=== PATIENT | female | born 1955 | race Caucasian/White ===

== ENCOUNTER 2017-09-16 19:10 | Emergency (ER) | payer OTHER, BC ==
[~2017-09-16] VITALS: Ht 157.5 cm; Wt 124.3 kg
[2017-09-16 19:46] LABS: BASOPHILS % (AUTO) 0 % (0-10); EOSINOPHILS # (AUTO) 0.1 10^3/uL (0.0-0.3); EOSINOPHILS % (AUTO) 2 % (0-10); HEMATOCRIT 35 % (35-52); HEMOGLOBIN 11.6 G/DL (11.5-16.0); LYMPHOCYTES # (AUTO) 1.4 X 10^3 (1.0-4.0); LYMPHOCYTES % (AUTO) 17 % (12-44); MEAN CORPUSCULAR HEMOGLOBIN 28 PG (25-34); MEAN CORPUSCULAR HGB CONC 33 G/DL (32-36); MEAN CORPUSCULAR VOLUME 85 FL (80-99); MEAN PLATELET VOLUME 10.1 FL (7.4-10.4); MONOCYTES # (AUTO) 0.7 X 10^3 (0.0-1.0); MONOCYTES % (AUTO) 8 % (0-12); NEUTROPHILS # (AUTO) 6.2 X 10^3 (1.8-7.8); NEUTROPHILS % (AUTO) 74 % (42-75); PLATELET COUNT 238 10^3/uL (130-400); RED BLOOD COUNT 4.09 10^6/uL (4.35-5.85); RED CELL DISTRIBUTION WIDTH 14.3 % (10.0-14.5); WHITE BLOOD COUNT 8.4 10^3/uL (4.3-11.0)
[2017-09-16 19:57] LABS: ALANINE AMINOTRANSFERASE 12 U/L (0-55); ALBUMIN 3.9 GM/DL (3.2-4.5); ALKALINE PHOSPHATASE 66 U/L (40-136); BILIRUBIN,TOTAL 0.4 MG/DL (0.1-1.0); BUN/CREATININE RATIO 8; CALCIUM 8.8 MG/DL (8.5-10.1); CARBON DIOXIDE 27 MMOL/L (21-32); CHLORIDE 105 MMOL/L (98-107); CREATININE SERUM 0.96 MG/DL (0.60-1.30); GFR ESTIMATED 59; GLUCOSE 114 MG/DL (70-105); SODIUM 140 MMOL/L (135-145); TOTAL PROTEIN 6.3 GM/DL (6.4-8.2)
[2017-09-16] MEDS ORDERED: HYDR12.5 (20:20)
[2017-09-16] MEDS ORDERED: METO-370 (20:20)
[2017-09-16] MEDS ORDERED: SIMV20TA3 (20:20)
[2017-09-16] MEDS ORDERED: LOSA25TA21 (20:20)
[2017-09-16] MEDS ORDERED: CATHETER FLUSH 10 ML SYR IV PRN (20:30)
[2017-09-16] MEDS ORDERED: NS 250 ML (IVPB) BAG IV ONE (20:30)
[2017-09-16] MEDS ORDERED: IOHEXOL 350 MG/ML 150 ML (OMNIPAQUE 350) VIAL IV ONE (20:30)
--- OUTSIDE RECORDS SUMMARY | 2017-09-16 20:43 | XMS REPORT ---
Author Author FRACISCO MCINTOSH [facility] Address [address] [place] [address] Care Team Providers Care Public Relations Director Name Role Phone FRACISCO MCINTOSH Unavailable PROBLEMS Type Condition ICD9-CM Code EOH13-JM Code Onset Dates Condition Status SNOMED Code Problem Chest pain R07.9 Active 00163285 Problem Left bundle branch block (LBBB) I44.7 Active 14380029 Problem Essential hypertension I10 Active 49420445 Problem Seasonal allergic rhinitis due to other allergic trigger J30.89 Active 550868259 Problem Morbid obesity, unspecified obesity type E66.01 Active 979067023 Problem Low vitamin D level E55.9 Active 011574860 ALLERGIES Unknown Allergies SOCIAL HISTORY No smoking Hx information available PLAN OF CARE VITAL SIGNS MEDICATIONS Unknown Medications RESULTS No Results PROCEDURES No Known procedures IMMUNIZATIONS No Known Immunizations
--- OUTSIDE RECORDS SUMMARY | 2017-09-16 20:43 | XMS REPORT ---
Author Author FRACISCO MCINTOSH [facility] Address [address] [place] [address] Care Team Providers Care Pasteurizing Supervisor Name Role Phone FRACISCO MCINTOSH Unavailable PROBLEMS Type Condition ICD9-CM Code ZIH63-KP Code Onset Dates Condition Status SNOMED Code Problem Chest pain R07.9 Active 27839521 Problem Left bundle branch block (LBBB) I44.7 Active 53964242 Problem Essential hypertension I10 Active 82745739 Problem Seasonal allergic rhinitis due to other allergic trigger J30.89 Active 007849911 Problem Morbid obesity, unspecified obesity type E66.01 Active 982254439 Problem Low vitamin D level E55.9 Active 366276602 ALLERGIES Unknown Allergies SOCIAL HISTORY No smoking Hx information available PLAN OF CARE VITAL SIGNS MEDICATIONS Medication Instructions Dosage Frequency Start Date End Date Duration Status Losartan Potassium 25 MG Orally Once a day 1 tablet 24h Apr, Active RESULTS No Results PROCEDURES No Known procedures IMMUNIZATIONS No Known Immunizations
--- OUTSIDE RECORDS SUMMARY | 2017-09-16 20:43 | XMS REPORT ---
Author Author [facility]IL[facility]ATORI Organization [facility] Address [address] [place] [address] Care Team Providers Care Railway Switch Operator Name Role Phone TORI VEGA Unavailable PROBLEMS Type Condition ICD9-CM Code BMD59-PN Code Onset Dates Condition Status SNOMED Code Problem Chest pain R07.9 Active 05835073 Problem Left bundle branch block (LBBB) I44.7 Active 26132023 Problem Essential hypertension I10 Active 18955789 Problem Seasonal allergic rhinitis due to other allergic trigger J30.89 Active 528629376 Problem Morbid obesity, unspecified obesity type E66.01 Active 725402269 Problem Low vitamin D level E55.9 Active 080887751 ALLERGIES No Known Allergies SOCIAL HISTORY Never Assessed PLAN OF CARE Activity Details Follow Up prn Reason:cough VITAL SIGNS Height 63 in 2016-06-12 Weight 299.5 lbs 2016-06-12 Temperature 98.1 degrees Fahrenheit 2016-06-12 Heart Rate 102 bpm 2016-06-12 Respiratory Rate 18 2016-06-12 BMI 53.05 kg/m2 2016-06-12 Blood pressure systolic 122 mmHg 2016-06-12 Blood pressure diastolic 72 mmHg 2016-06-12 MEDICATIONS Medication Instructions Dosage Frequency Start Date End Date Duration Status Losartan Potassium 25 MG Orally Once a day 1 tablet 24h Apr, Active Aspirin Adult Low Dose 81 MG Orally Once a day 1 tablet 24h Active RESULTS No Results PROCEDURES No Known procedures IMMUNIZATIONS No Known Immunizations MEDICAL (GENERAL) HISTORY Type Description Date Medical History hypertension Medical History obesity Medical History allergic rhinitis Medical History menopause Surgical History appendecomy 2011 Surgical History hysterectomy 1999 Surgical History broken nose repair Hospitalization History Surgery(s)/Childbirth(s) only Hospitalization History Hypertension 2015
--- OUTSIDE RECORDS SUMMARY | 2017-09-16 20:43 | XMS REPORT ---
Author Author JASBIR PRATT [facility] Address [address] [place] [address] Care Team Providers Care Blueprint Machine Operator Name Role Phone JASBIR PRATT Unavailable PROBLEMS Type Condition ICD9-CM Code OLP56-EU Code Onset Dates Condition Status SNOMED Code Problem Chest pain R07.9 Active 41626400 Problem Left bundle branch block (LBBB) I44.7 Active 44843692 Problem Essential hypertension I10 Active 35843684 Problem Seasonal allergic rhinitis due to other allergic trigger J30.89 Active 116410612 Problem Morbid obesity, unspecified obesity type E66.01 Active 908826149 Problem Low vitamin D level E55.9 Active 348452171 ALLERGIES No Known Allergies ENCOUNTERS Encounter Location Date Diagnosis [place] [address] [place] [id number] [place] [id number] Sep, [place] [id number] [place] [address] [id number] Jun, [address] [id number] [id number] Jun, Lymphadenopathy of head and neck R59.1 [facility] [id number] [place] [id number] Jun, BMI 45.0-49.9, adult Z68.42 ; Other specified bacterial agents as the cause of diseases classified elsewhere B96.89 ; Acute pharyngitis due to other specified organisms J02.8 ; Sore throat J02.9 and Cough R05 [facility] [address] [id number] [address] Jun, [facility] [address] [id number], [place] [address] Mar, Essential hypertension I10 [facility] [address] [id number], [place] [address] 09 Mar, 2017 Seasonal allergic rhinitis due to other allergic trigger J30.89 [facility] [address] [place] [id number] [place] [address] 04 Mar, 2017 [facility] [address] [place] [id number] [place] [phone] 05 Dec, 2016 Essential hypertension I10 [facility] [address] [place] [id number] [place] [address] Nov, Essential hypertension I10 [facility] [address] [address] Oct, [facility] [address] [place] [id number] [place] [address] Oct, Facial eczema L30.9 ; Essential hypertension I10 and Wellness examination Z00.00 [facility] [address] [place] [id number] [place] [address] Sep, Screening for diabetes mellitus Z13.1 [facility] [address] [place] [id number] [place] [address] Sep, Screening for diabetes mellitus Z13.1 [facility] [address] [place] [id number] [place] [address] August, Dysuria R30.0 [facility] [address] [place] [id number] [place] [address] 10 Jul, 2016 Chest pain, unspecified type R07.9 [facility] [address] [place] [id number] [place] [address] Jul, Chest pain R07.9 and Left bundle branch block (LBBB) I44.7 [facility] [address] [place] [id number] [place] [address] Jul, Urinary tract infection N39.0 [facility] [id number], [place] [address] Jul, [facility] [address] [id number], [place] [address] Jul, [facility] [address] [place] [id number], [place] [address] Jul, Dysuria R30.0 ; Low vitamin D level E55.9 ; Encounter for immunization Z23 ; Essential hypertension I10 ; Morbid obesity, unspecified obesity type E66.01 ; Edema, unspecified type R60.9 and Tinea corporis B35.4 [facility] [id number] [phone] Jul, [facility] [address] [place] [id number] [place] [id number] Jun, Cough R05 [facility] [address] [place] [id number] [place] [address] [id number] Apr, Blood pressure check Z01.30 [place] [address] [place] [id number] [place] [phone] Apr, [facility] [address] [place] [id number] Apr, [facility] [id number], [place] [address] Apr, Viral syndrome B34.9 [facility] [address] [place] [id number], [place] [address] Apr, [facility] [address] [place] [id number], [place] [address] Apr, Essential hypertension I10 [place] [address] [place] [id number] Apr, Blood pressure check Z01.30 [facility] [id number] Apr, Blood pressure check Z01.30 [id number] [id number] Apr, Blood pressure check Z01.30 [id number] [id number] Apr, [address] [place] [address] [id number] Apr, [place] [place] [id number] [place] [address] [id number] Apr, Blood pressure check Z01.30 [place] [id number] Apr, Blood pressure check Z01.30 [place] [id number] Apr, Blood pressure check Z01.30 [id number] [id number] Apr, Essential hypertension I10 and Heart palpitations R00.2 [address]00565100[place] [id number] Mar, Seasonal allergic rhinitis due to other allergic trigger J30.89 and Heart murmur R01.1 [facility] [address] [id number][place] [id number] Mar, [place] [address]00565100[place] [id number] Mar, Viral syndrome B34.9 [place] [address]00565100[place] [id number] Feb, [address]00565100[place] [id number] Feb, Dizziness R42 [address]00565100[place] [id number] Oct, [place] [id number] [place] [address] [id number] Oct, [place] [id number] [place] [address] [id number] Oct, URI, acute J06.9 [place] [id number] [place] [address] [id number] Sep, Right otitis media, unspecified chronicity, unspecified otitis media type H66.91 and Acute non-recurrent maxillary sinusitis J01.00 [place] [id number] [place] [address] [id number] Sep, [place] [id number] [place] [address] [id number] Sep, [place] [id number] [place] [address] [id number] Sep, Vitamin D deficiency E55.9 ; Vaginal dryness, menopausal N95.1 ; Frequent headaches R51 and Impacted cerumen of right ear H61.[address] [place] [address] [id number] Sep, Annual physical exam Z00.00 and Vitamin D deficiency, unspecified E55.9 [place] [id number] [place] [address] [id number] Mar, Urinary tract infection, site not specified N39.0 and Dysuria R30.0 [place] [id number] [place] [address] [id number] Dec, Viral syndrome 079.99 [place] [id number] [place] [address] [id number] 08 Dec, 2014 Allergic rhinitis 477.[address] [id number] Oct, Herpes zoster 053.9 [facility] [address] [place] [address] [id number] [phone] August, Screening for lipoid disorders V77.91 and Screening for diabetes mellitus V77.1 [facility] [address] [id number], [place] [address] 14 Jul, 2014 [facility] [address]00565100[place], [place] [address] Jul, [facility] [address] [place] [address] [id number] [phone] Jun, [place] [address]65100[place], [place] [address] Jun, [facility] [address] [place], [place] [address]B[place] [id number] Mar, [place] [address]65100[place], [place] [address] Mar, [facility] [address] [place], [place] [id number] [id number] Mar, [place] [address] [id number], [place] [address] Mar, 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 PLAN OF CARE Activity Details Follow Up 3 Months Reason:htn VITAL SIGNS Height 63 in 2017-03-24 Weight 276.9 lbs 2017-03-24 Temperature 97.5 degrees Fahrenheit 2017-03-24 Heart Rate 88 bpm 2017-03-24 Respiratory Rate 16 2017-03-24 BMI 49.05 kg/m2 2017-03-24 Blood pressure systolic 120 mmHg 2017-03-24 Blood pressure diastolic 76 mmHg 2017-03-24 MEDICATIONS Medication Instructions Dosage Frequency Start Date End Date Duration Status Nystatin 745393 UNIT/GM Externally Twice a day 1 application to affected area 12Jul, Not-Taking Aspirin Adult Low Dose 81 MG Orally Once a day 1 tablet 24h Not- Taking Zyrtec Allergy 10 MG Orally Once a day 1 tablet 24h Not-Taking Nitroglycerin 0.4 MG Sublingual for severe chest pain, may repeat every 5 minutes, max of 3 doses in 15 min take 1 tablet Jul, Not- Taking Metoprolol Succinate ER 50 mg Orally Once a day 1 tablet 24h Active Hydrochlorothiazide 12.5 MG Orally Once a day 1 tablet in the morning 24h Jul, Active Flonase 50 MCG/ACT Nasally Twice a day 1 spray in each nostril 12h Mar, 30 day(s) Active Losartan Potassium 25 MG Orally Once a day 1 tablet 24h 30 Active RESULTS No Results PROCEDURES No Known procedures INSTRUCTIONS MEDICATIONS ADMINISTERED No Known Medications MEDICAL (GENERAL) HISTORY Type Description Date Medical History hypertension Medical History obesity Medical History allergic rhinitis Medical History menopause Surgical History appendecomy 2011 Surgical History hysterectomy 1999 Surgical History broken nose repair Hospitalization History Surgery(s)/Childbirth(s) only Hospitalization History Hypertension 2015
--- OUTSIDE RECORDS SUMMARY | 2017-09-16 20:43 | XMS REPORT ---
Author Author AIMEE Jeong [facility] Address [address] [address] Care Team Providers Care Net Lead Architect Name Role Phone AIMEE Jeong Unavailable PROBLEMS Type Condition ICD9-CM Code GFK99-ZC Code Onset Dates Condition Status SNOMED Code Problem Chest pain R07.9 Active 01158431 Problem Left bundle branch block (LBBB) I44.7 Active 22076099 Problem Essential hypertension I10 Active 14655190 Problem Seasonal allergic rhinitis due to other allergic trigger J30.89 Active 316921878 Problem Morbid obesity, unspecified obesity type E66.01 Active 260030387 Problem Low vitamin D level E55.9 Active 470916125 ALLERGIES Unknown Allergies SOCIAL HISTORY No smoking Hx information available PLAN OF CARE VITAL SIGNS Height 63 in 2016-04-10 Heart Rate 82 bpm 2016-04-10 Blood pressure systolic 130 mmHg 2016-04-10 Blood pressure diastolic 80 mmHg 2016-04-10 MEDICATIONS Unknown Medications RESULTS No Results PROCEDURES No Known procedures IMMUNIZATIONS No Known Immunizations
--- OUTSIDE RECORDS SUMMARY | 2017-09-16 20:43 | XMS REPORT ---
Author Author FRACISCO Minor Organization [facility] Address [address] [place] [address] Care Team Providers Care Security Dispatcher Name Role Phone FRACISCO Minor Unavailable PROBLEMS Type Condition ICD9-CM Code XDD73-AT Code Onset Dates Condition Status SNOMED Code Problem Chest pain R07.9 Active 67054404 Problem Left bundle branch block (LBBB) I44.7 Active 54142265 Problem Essential hypertension I10 Active 15160313 Problem Seasonal allergic rhinitis due to other allergic trigger J30.89 Active 163359307 Problem Morbid obesity, unspecified obesity type E66.01 Active 836938803 Problem Low vitamin D level E55.9 Active 849586073 ALLERGIES No Known Allergies ENCOUNTERS Encounter Location Date Diagnosis [facility] [address] [place] [id number] [id number] Jun, [facility] [address] [place], [place] [id number] [place] [id number] Jun, Lymphadenopathy of head and neck R59.1 [facility] [place] [address] [id number] [place] [id number] Jun, BMI 45.0-49.9, adult Z68.42 ; Other specified bacterial agents as the cause of diseases classified elsewhere B96.89 ; Acute pharyngitis due to other specified organisms J02.8 ; Sore throat J02.9 and Cough R05 [facility] [id number] [place] [address] 05 Jun, 2017 [facility] [address] [id number] [address] Mar, Essential hypertension I10 [facility] [address] [place] [id number] [place] [address] 09 Mar, 2017 Seasonal allergic rhinitis due to other allergic trigger J30.89 [facility] [address] [place] [id number] [place] [address] 04 Mar, 2017 [facility] [id number] [place] [address] 05 Dec, 2016 Essential hypertension I10 [facility] [address] [address] Nov, Essential hypertension I10 [facility] [address] [address] Oct, [facility] [address] [address] Oct, Facial eczema L30.9 ; Essential hypertension I10 and Wellness examination Z00.00 [facility] [address] [place] [id number] [place] [address] Sep, Screening for diabetes mellitus Z13.1 [facility] [address] [place] [id number] [place] [address] Sep, Screening for diabetes mellitus Z13.1 [facility] [address] [place] [id number] [place] [address] August, Dysuria R30.0 [facility] [address] [place] [id number] [place] [address] Jul, Chest pain, unspecified type R07.9 [facility] [address] [place] [id number] [place] [address] 07 Jul, 2016 Chest pain R07.9 and Left bundle branch block (LBBB) I44.7 [facility] [address] [place] [id number] [place] [address] 05 Jul, 2016 Urinary tract infection N39.0 [facility] [address] [id number] [place] [address] 05 Jul, 2016 [facility] [address] [place] [id number] [place] [address] Jul, [facility] [address] [place] [id number] [place] [address] Jul, Dysuria R30.0 ; Low vitamin D level E55.9 ; Encounter for immunization Z23 ; Essential hypertension I10 ; Morbid obesity, unspecified obesity type E66.01 ; Edema, unspecified type R60.9 and Tinea corporis B35.4 [facility] [id number] RUN[place] [id number] Jul, [facility] [address] [place] [id number] [place] [address] [id number] Jun, Cough R05 [place] [address] [place] [id number] [place] [address] [id number] Apr, Blood pressure check Z01.30 [place] [address] [place], [place] [address] [id number] Apr, [facility] [address] [place] [id number] [place] [address] [id number] Apr, [facility] [address] [place] [id number] [place] [address] Apr, Viral syndrome B34.9 [facility] [address] [place] [id number] [place] [address] Apr, [facility] [id number] [place] [address] Apr, Essential hypertension I10 [facility] [address] [place] [address] [id number] Apr, Blood pressure check Z01.30 [place] [address] [place] [address] [place] [address] [id number] Apr, Blood pressure check Z01.30 [address]00565100[place] [id number] Apr, Blood pressure check Z01.30 [address]00565100[place] [address] Apr, [address] [place] [address] [id number] Apr, [place] [id number] [place] [address] [id number] Apr, Blood pressure check Z01.30 [place] [address] [place] [address] [id number] Apr, Blood pressure check Z01.30 [place] [id number] Apr, Blood pressure check Z01.30 [address]65100[place] [address] Apr, Essential hypertension I10 and Heart palpitations R00.2 [place] [address]00565100[place] [id number] Mar, Seasonal allergic rhinitis due to other allergic trigger J30.89 and Heart murmur R01.1 [facility] [address] [id number] RUN[place] [id number] Mar, [address]00565100[place], [place] [id number] Mar, Viral syndrome B34.9 [place] [address] [id number] [id number] Feb, [address]65100[place], [place] [id number] Feb, Dizziness R42 [id number] [id number] Oct, [address]00565100[place] [id number] Oct, [place] [address] [place] [address] [id number] Oct, URI, acute J06.9 [place] [address] [place] [address] [id number] Sep, Right otitis media, unspecified chronicity, unspecified otitis media type H66.91 and Acute non-recurrent maxillary sinusitis J01.00 [place] [address] [place] [address] [id number] Sep, [place] [address] [place] [address] [id number] Sep, [place] [address] [place] [address] [id number] Sep, Vitamin D deficiency E55.9 ; Vaginal dryness, menopausal N95.1 ; Frequent headaches R51 and Impacted cerumen of right ear H61.21 [place] [address] [place] [address] [id number] Sep, Annual physical exam Z00.00 and Vitamin D deficiency, unspecified E55.9 [id number] [id number] Mar, Urinary tract infection, site not specified N39.0 and Dysuria R30.0 [place] [id number] [place] [address] [id number] Dec, Viral syndrome 079.99 [place] [address] [place] [address] [id number] Dec, Allergic rhinitis 477.9 [place] [address] [place] [address] [id number] Oct, Herpes zoster 053.9 [facility] [address] [place] [address] [id number] [id number] August, Screening for lipoid disorders V77.91 and Screening for diabetes mellitus V77.1 [facility] [address] [id number] [address] 14 Jul, 2014 [facility] [address] [id number] [address] Jul, [facility] [address] [place] [id number] [id number] Jun, [facility] [address]00565100[place] [address] Jun, [facility] [address] [place] [address] [id number] Mar, [facility] [address] [id number] [address] Mar, [facility] [address] [place] [address] [id number], [place] [id number] Mar, [facility] [address]00565100[place] [address] Mar, [facility] [address] [place] [address] [id number] [id number] Jan, [facility] [address] [id number] [address] Jan, IMMUNIZATIONS No Known Immunizations SOCIAL HISTORY Never Assessed REASON FOR VISIT 3 mo F/U- Pt wanting yearly exam- Caren Redmond RN PLAN OF CARE Activity Details Follow Up 4 Months Reason: VITAL SIGNS Height 63 in 2016-10-21 Weight 279.2 lbs 2016-10-21 Temperature 97.4 degrees Fahrenheit 2016-10-21 Heart Rate 80 bpm 2016-10-21 Respiratory Rate 18 2016-10-21 BMI 49.45 kg/m2 2016-10-21 Blood pressure systolic 128 mmHg 2016-10-21 Blood pressure diastolic 80 mmHg 2016-10-21 MEDICATIONS Medication Instructions Dosage Frequency Start Date End Date Duration Status Nitroglycerin 0.4 MG Sublingual for severe chest pain, may repeat every 5 minutes, max of 3 doses in 15 min take 1 tablet Jul, Active Losartan Potassium 25 MG Orally Once a day 1 tablet 24h Apr, Active Hydrochlorothiazide 12.5 MG Orally Once a day 1 tablet in the morning 24h Jul, Active Aspirin Adult Low Dose 81 MG Orally Once a day 1 tablet 24h Active Metoprolol Succinate ER 50 MG Orally Once a day 1 tablet 24h Active RESULTS No Results PROCEDURES Procedure Date Ordered Result Body Site ROUTINE VENIPUNCTURE 2016-10-21 N/A COMPLETE CBC W/AUTO DIFF WBC October 21, 2016 LIPID PANEL October 21, 2016 COMPREHEN METABOLIC PANEL October 21, 2016 INSTRUCTIONS MEDICATIONS ADMINISTERED No Known Medications MEDICAL (GENERAL) HISTORY Type Description Date Medical History hypertension Medical History obesity Medical History allergic rhinitis Medical History menopause Surgical History appendecomy 2011 Surgical History hysterectomy 1999 Surgical History broken nose repair Hospitalization History Surgery(s)/Childbirth(s) only Hospitalization History Hypertension 2015
--- OUTSIDE RECORDS SUMMARY | 2017-09-16 20:43 | XMS REPORT ---
Author Author AIMEE Jeong [facility] Address [address] [address] Care Team Providers Care Campground Manager Name Role Phone AIMEE Jeong Unavailable PROBLEMS Type Condition ICD9-CM Code DYM87-SI Code Onset Dates Condition Status SNOMED Code Problem Chest pain R07.9 Active 29903286 Problem Left bundle branch block (LBBB) I44.7 Active 90742899 Problem Essential hypertension I10 Active 74581031 Problem Seasonal allergic rhinitis due to other allergic trigger J30.89 Active 705462840 Problem Morbid obesity, unspecified obesity type E66.01 Active 339318223 Problem Low vitamin D level E55.9 Active 862532466 ALLERGIES Unknown Allergies SOCIAL HISTORY No smoking Hx information available PLAN OF CARE VITAL SIGNS Height 63 in 2016-04-14 Heart Rate 82 bpm 2016-04-14 Blood pressure systolic 118 mmHg 2016-04-14 Blood pressure diastolic 68 mmHg 2016-04-14 MEDICATIONS Unknown Medications RESULTS No Results PROCEDURES No Known procedures IMMUNIZATIONS No Known Immunizations
--- OUTSIDE RECORDS SUMMARY | 2017-09-16 20:43 | XMS REPORT ---
Author Author FRACISCO MCINTOSH [facility] Address [address] [place] [address] Care Team Providers Care Utility Specialist Name Role Phone FRACISCO MCINTOSH Unavailable PROBLEMS Type Condition ICD9-CM Code MWX49-IY Code Onset Dates Condition Status SNOMED Code Problem Chest pain R07.9 Active 05754379 Problem Left bundle branch block (LBBB) I44.7 Active 19948868 Problem Essential hypertension I10 Active 28985885 Problem Seasonal allergic rhinitis due to other allergic trigger J30.89 Active 228534927 Problem Morbid obesity, unspecified obesity type E66.01 Active 146494085 Problem Low vitamin D level E55.9 Active 924811092 ALLERGIES Unknown Allergies SOCIAL HISTORY No smoking Hx information available PLAN OF CARE VITAL SIGNS MEDICATIONS Medication Instructions Dosage Frequency Start Date End Date Duration Status Tessalon Perles 100 MG Orally Three times a day 1 capsule as needed 8h Mar, Active RESULTS No Results PROCEDURES No Known procedures IMMUNIZATIONS No Known Immunizations
--- OUTSIDE RECORDS SUMMARY | 2017-09-16 20:44 | XMS REPORT ---
Author Author FRACISCO Minor [facility] Address [address] [place] [address] Care Team Providers Care Parts Processor Name Role Phone FRACISCO Minor Unavailable PROBLEMS Type Condition ICD9-CM Code FVG15-MK Code Onset Dates Condition Status SNOMED Code Problem Chest pain R07.9 Active 59362764 Problem Left bundle branch block (LBBB) I44.7 Active 26744225 Problem Essential hypertension I10 Active 90834164 Problem Seasonal allergic rhinitis due to other allergic trigger J30.89 Active 668620283 Problem Morbid obesity, unspecified obesity type E66.01 Active 444096918 Problem Low vitamin D level E55.9 Active 034497093 ALLERGIES No Information SOCIAL HISTORY Never Assessed PLAN OF CARE VITAL SIGNS MEDICATIONS Unknown Medications RESULTS Name Result Date Reference Range A1C (IN HOUSE) 2016-09-04 A1C IN HOUSE 5.6 4.3 - 5.6 % Previous A1c n/a Lot [id number] Exp date 05/2018 PROCEDURES Procedure Date Ordered Result Body Site GLYCATED HEMOGLOBIN TEST September 04, 2016 IMMUNIZATIONS No Known Immunizations MEDICAL (GENERAL) HISTORY Type Description Date Medical History hypertension Medical History obesity Medical History allergic rhinitis Medical History menopause Surgical History appendecomy 2011 Surgical History hysterectomy 1999 Surgical History broken nose repair Hospitalization History Surgery(s)/Childbirth(s) only Hospitalization History Hypertension 2015
--- OUTSIDE RECORDS SUMMARY | 2017-09-16 20:44 | XMS REPORT ---
Author Author FRACISCO MCINTOSH [facility] Address [address] [place] [address] Care Team Providers Care Global Marketing Manager Name Role Phone FRACISCO MCINTOSH Unavailable PROBLEMS Unknown Problems ALLERGIES Unknown Allergies SOCIAL HISTORY No smoking Hx information available PLAN OF CARE VITAL SIGNS MEDICATIONS Unknown Medications RESULTS No Results PROCEDURES No Known procedures IMMUNIZATIONS No Known Immunizations
--- OUTSIDE RECORDS SUMMARY | 2017-09-16 20:44 | XMS REPORT ---
Author Author JASBIR PRATT [facility] Address [address] [place] [address] Care Team Providers Care Song Writer Name Role Phone JASBIR PRATT Unavailable PROBLEMS Type Condition ICD9-CM Code ALU53-LZ Code Onset Dates Condition Status SNOMED Code Problem Chest pain R07.9 Active 20392207 Problem Left bundle branch block (LBBB) I44.7 Active 16595040 Problem Essential hypertension I10 Active 97178590 Problem Seasonal allergic rhinitis due to other allergic trigger J30.89 Active 103400047 Problem Morbid obesity, unspecified obesity type E66.01 Active 118312597 Problem Low vitamin D level E55.9 Active 000192114 ALLERGIES No Information ENCOUNTERS Encounter Location Date Diagnosis [facility] [address]65100[place], [place] [id number] Jun, [facility] [address] [place] [id number] [place] [id number] Jun, Lymphadenopathy of head and neck R59.1 [facility] [address] [id number], [place] [id number] Jun, BMI 45.0-49.9, adult Z68.42 ; Other specified bacterial agents as the cause of diseases classified elsewhere B96.89 ; Acute pharyngitis due to other specified organisms J02.8 ; Sore throat J02.9 and Cough R05 [facility] [address] [id number], [place] [address] Jun, [facility] [address] [id number], [place] [address] Mar, Essential hypertension I10 [facility] [address] [id number], [place] [address] Mar, Seasonal allergic rhinitis due to other allergic trigger J30.89 [facility] [address] [place] [id number] [place] [address] 04 Mar, 2017 [facility] [address] [place] [id number] [place] [address] 05 Dec, 2016 Essential hypertension I10 [facility] [address] [address] 02 Nov, 2016 Essential hypertension I10 [facility] [address] [address] Oct, [facility] [address] [address] Oct, Facial eczema L30.9 ; Essential hypertension I10 and Wellness examination Z00.00 [facility] [address] [address] Sep, Screening for diabetes mellitus Z13.1 [facility] [address] [place] [id number] [place] [address] Sep, Screening for diabetes mellitus Z13.1 [facility] [address] [place] [id number] [place] [address] August, Dysuria R30.0 [facility] [address] [place] [id number] [place] [address] 10 Jul, 2016 Chest pain, unspecified type R07.9 [facility] [address] [place] [id number] [place] [address] 07 Jul, 2016 Chest pain R07.9 and Left bundle branch block (LBBB) I44.7 [facility] [address] [place] [id number] [place] [address] 05 Jul, 2016 Urinary tract infection N39.0 [facility] [address] [place] [id number] [place] [address] Jul, [facility] [id number], [place] [address] Jul, [facility] [address] [place] [id number], [place] [address] Jul, Dysuria R30.0 ; Low vitamin D level E55.9 ; Encounter for immunization Z23 ; Essential hypertension I10 ; Morbid obesity, unspecified obesity type E66.01 ; Edema, unspecified type R60.9 and Tinea corporis B35.4 [facility] [id number], [place] [id number] Jul, [place] [address] [place] [id number] [place] [address] [id number] Jun, Cough R05 [facility] [address] [id number] [place] [address] [id number] Apr, Blood pressure check Z01.30 [facility] [address] [id number] [id number] Apr, [facility] [address] [place] [id number] [place] [address] [id number] Apr, [facility] [id number], [place] [address] Apr, Viral syndrome B34.9 [facility] [address] [id number], [place] [address] Apr, [facility] [address] [place] [id number], [place] [address] Apr, Essential hypertension I10 [place] [address] [place] [id number] [place] [address] [id number] Apr, Blood pressure check Z01.30 [facility] [address] [place] 250[place], [place] [id number] Apr, Blood pressure check Z01.30 [place] [address]00565100[place], [place] [id number] Apr, Blood pressure check Z01.30 [place] 5942165100[place], [place] [id number] Apr, [facility] [address]00565100[place], [place] [id number] Apr, [place] [id number] [place] [address] [id number] Apr, Blood pressure check Z01.30 [place] [id number] [place] [address] [id number] Apr, Blood pressure check Z01.30 [place] 5942165100[place], [place] 25[address]38[address] Apr, Blood pressure check Z01.30 [place] [address] [place] [address] [id number] Apr, Essential hypertension I10 and Heart palpitations R00.2 [facility] [id number] [place] [address] [id number] Mar, Seasonal allergic rhinitis due to other allergic trigger J30.89 and Heart murmur R01.1 [facility] [place] [address] [id number], [place] [id number] Mar, [address]005[address]100[place], [place] [id number] Mar, Viral syndrome B34.9 [facility] [address]00565100[place], [place] [id number] Feb, [address]00565100[place], [place] [id number] Feb, Dizziness R42 [facility] [id number], [place] [id number] Oct, [place] [id number], [place] [id number] Oct, [place] [id number], [place] [id number] Oct, URI, acute J06.9 [address]00565100[place], [place] 8[address]98[address] Sep, Right otitis media, unspecified chronicity, unspecified otitis media type H66.91 and Acute non-recurrent maxillary sinusitis J01.00 [place] 9487165[place] 149692580 Sep, [place] [id number] [place] [address] [id number] Sep, [place] 9487165[place], [place] [id number] Sep, Vitamin D deficiency E55.9 ; Vaginal dryness, menopausal N95.1 ; Frequent headaches R51 and Impacted cerumen of right ear H61.21 [address]00565100[place], [place] [id number] Sep, Annual physical exam Z00.00 and Vitamin D deficiency, unspecified E55.9 [place] [id number] [place] [address] [id number] Mar, Urinary tract infection, site not specified N39.0 and Dysuria R30.0 [place] [id number] [place] [address] [id number] Dec, Viral syndrome 079.[address] [id number] 08 Dec, 2014 Allergic rhinitis 477.9 [place] [id number] [place] [address] [id number] Oct, Herpes zoster 053.9 [address] [place] [id number] August, Screening for lipoid disorders V77.91 and Screening for diabetes mellitus V77.1 [facility] [address]00565100[place], [place] [address] Jul, [facility] [address] [id number], [place] [address] Jul, [place] [id number], [place] [id number] Jun, [facility] [address]00565100[place], [place] [address] Jun, [address]00565100[place], [place] [id number] Mar, [facility] [address]00565100[place], [place] [address] Mar, [address]005[address]100[place], [place] [id number] Mar, [facility] [address] [id number], [place] [address] Mar, [address]005[address]100[place], [place] [id number] Jan, [facility] [address] [id number], [place] [address] Jan, IMMUNIZATIONS No Known Immunizations SOCIAL HISTORY Never Assessed REASON FOR VISIT Lab orders PLAN OF CARE VITAL SIGNS MEDICATIONS Unknown Medications RESULTS No Results PROCEDURES No Known procedures INSTRUCTIONS MEDICATIONS ADMINISTERED No Known Medications MEDICAL (GENERAL) HISTORY Type Description Date Medical History hypertension Medical History obesity Medical History allergic rhinitis Medical History menopause Surgical History appendecomy 2011 Surgical History hysterectomy 2000 Surgical History broken nose repair Hospitalization History Surgery(s)/Childbirth(s) only Hospitalization History Hypertension 2015
--- OUTSIDE RECORDS SUMMARY | 2017-09-16 20:44 | XMS REPORT ---
Author Author FRACISCO MCINTOSH [facility] Address [address] [place] [address] Care Team Providers Care Mobile Phone Salesperson Name Role Phone FRACISCO MCINTOSH Unavailable PROBLEMS Type Condition ICD9-CM Code [id number] Code Onset Dates Condition Status SNOMED Code Problem Chest pain R07.9 Active 29663864 Problem Left bundle branch block (LBBB) I44.7 Active 20827720 Problem Essential hypertension I10 Active 05052498 Problem Seasonal allergic rhinitis due to other allergic trigger J30.89 Active 854916641 Problem Morbid obesity, unspecified obesity type E66.01 Active 931383369 Problem Low vitamin D level E55.9 Active 828120011 ALLERGIES Unknown Allergies SOCIAL HISTORY No smoking Hx information available PLAN OF CARE VITAL SIGNS Height 63 in 2016-04-11 Heart Rate 98 bpm 2016-04-11 Respiratory Rate 18 2016-04-11 Blood pressure systolic 140 mmHg 2016-04-11 Blood pressure diastolic 78 mmHg 2016-04-11 MEDICATIONS Unknown Medications RESULTS No Results PROCEDURES No Known procedures IMMUNIZATIONS No Known Immunizations
--- OUTSIDE RECORDS SUMMARY | 2017-09-16 20:44 | XMS REPORT ---
Author Author MAGY LEA Organization [employer] Address Unknown Phone Unavailable Care Team Providers Care Radiology Ct Technologist Name Role Phone ZULYSAYDA MAGY CP Unavailable Allergies, Adverse Reactions, Alerts Substance Reaction Event Type N.K.D.A. Info Not Available Non Drug Allergy Problems Problem Type Condition Code Onset Dates Condition Status Assessment Vaginal dryness, menopausal N95.1 Active Assessment Frequent headaches R51 Active Assessment Vitamin D deficiency E55.9 Active Assessment Impacted cerumen of right ear H61.21 Active Medications Medication Code System Code Instructions Start Date End Date Status Dosage Multi Complete [facility][NOTE 3] [address]153 Orally not defined Grape Seed Complex [facility][NOTE 3] 477[address]18 50 mg Orally Once a day 2 tablets Ergocalciferol [facility][NOTE 3] [address]-52 80000 UNIT Orally Once a week September 26, 2015 October 08, 2015 1 capsule Ibuprofen [facility][NOTE 3] [address]-51 600 MG Orally Three times a day September 26, 2015 October 26, 2015 1 tablet Estradiol [facility][NOTE 3] [address]-79 0.1 MG/GM Vaginal as directed September 26, 2015 instill 0.2mg daily x 2 weeks and then instill 0.2 mg twice weekly Dietary Management Product NDC 0 2 Orally Once a day not defined Eye Health Formula NDC 0 1 by oral route Once a day not defined Raji/Mag [facility][NOTE 3] 64457-[address]60 200-100 MG Orally Once a day 2 tablets Probiotic [facility][NOTE 3] [address]11-14088 1 Orally Once a day not defined Loratadine Allergy Relief [facility][NOTE 3] [address]46-34923 10 MG Orally Once a day 1 tablet on the tongue and allow to dissolve Procedures Procedure Coding System Code Date Office Visit, Est Pt., Level 3 CPT-4 88302 September 26, 2015 EAR IRRIGATION CPT-4 68747 September 26, 2015 Vital Signs Date/Time: September 26, 2015 Cardiac Monitoring Heart Rate 80 bpm Weight 298.3 lbs Height 63 in BMI 52.84 Index Blood Pressure Diastolic 74 mmHg Blood Pressure Systolic 120 mmHg Results No Known Results Summary Purpose [employer] Submission
--- OUTSIDE RECORDS SUMMARY | 2017-09-16 20:44 | XMS REPORT ---
Author Author FRACISCO MCINTOSH [facility] Address [address] [place] [address] Care Team Providers Care Environmental Health Technician Name Role Phone FRACISCO MCINTOSH Unavailable PROBLEMS Type Condition ICD9-CM Code RYY18-ZA Code Onset Dates Condition Status SNOMED Code Problem Chest pain R07.9 Active 80659077 Problem Left bundle branch block (LBBB) I44.7 Active 32585328 Problem Essential hypertension I10 Active 97066637 Problem Seasonal allergic rhinitis due to other allergic trigger J30.89 Active 338177570 Problem Morbid obesity, unspecified obesity type E66.01 Active 352870992 Problem Low vitamin D level E55.9 Active 640641189 ALLERGIES Unknown Allergies SOCIAL HISTORY No smoking Hx information available PLAN OF CARE VITAL SIGNS Height 63 in 2016-04-15 Heart Rate 88 bpm 2016-04-15 Blood pressure systolic 118 mmHg 2016-04-15 Blood pressure diastolic 62 mmHg 2016-04-15 MEDICATIONS Unknown Medications RESULTS No Results PROCEDURES No Known procedures IMMUNIZATIONS No Known Immunizations
--- OUTSIDE RECORDS SUMMARY | 2017-09-16 20:44 | XMS REPORT ---
Author Author AIMEE FISH Organization [employer] Address Unknown Phone Unavailable Care Team Providers Care Rn Internship Name Role Phone AIMEE FISH CP Unavailable Allergies, Adverse Reactions, Alerts Substance Reaction Event Type N.K.D.A. Info Not Available Non Drug Allergy Problems Problem Type Condition Code Onset Dates Condition Status Assessment Dizziness R42 Active Medications Medication Code System Code Instructions Start Date End Date Status Dosage Meclizine HCl [facility] [place] [address]-82 25 MG Orally Once a day Feb 04, 2016 1 tablet as needed Procedures Procedure Coding System Code Date Office Visit, Est Pt., Level 3 CPT-4 76974 Feb 04, 2016 Vital Signs Date/Time: Feb 04, 2016 Cardiac Monitoring Heart Rate 78 bpm Weight 303 lbs Height 63 in BMI 53.67 Index Blood Pressure Diastolic 72 mmHg Blood Pressure Systolic 112 mmHg Results No Known Results Summary Purpose [employer] Submission
--- OUTSIDE RECORDS SUMMARY | 2017-09-16 20:44 | XMS REPORT ---
Author Author TESS Elena Organization [facility] Address [address] [place] [address] Care Team Providers Care Stonemason Helper Name Role Phone TESS Elena Unavailable PROBLEMS Type Condition ICD9-CM Code HUE09-IZ Code Onset Dates Condition Status SNOMED Code Problem Left bundle branch block (LBBB) I44.7 Active 11549253 Problem Chest pain R07.9 Active 41123767 Problem Essential hypertension I10 Active 96210038 Problem Seasonal allergic rhinitis due to other allergic trigger J30.89 Active 712594414 Problem Low vitamin D level E55.9 Active 250190025 Problem Morbid obesity, unspecified obesity type E66.01 Active 037954329 ALLERGIES Substance Reaction Event Type Date Status N.K.D.A. Unknown Non Drug Allergy Mar, Unknown SOCIAL HISTORY No smoking Hx information available PLAN OF CARE Activity Details Follow Up Advised to make annual physical appointment Reason: VITAL SIGNS Height 63 in 2016-03-27 Weight 303.4 lbs 2016-03-27 Temperature 98.4 degrees Fahrenheit 2016-03-27 Heart Rate 96 bpm 2016-03-27 Respiratory Rate 22 2016-03-27 BMI 53.74 kg/m2 2016-03-27 Blood pressure systolic 138 mmHg 2016-03-27 Blood pressure diastolic 84 mmHg 2016-03-27 MEDICATIONS Medication Instructions Dosage Frequency Start Date End Date Duration Status Ipratropium [place] 0.03 % Nasally Twice a day 2 applications in each nostril as needed 12h Mar, Active Grape Seed Complex 50 mg Orally Once a day 2 tablets 24h Active Raji/Mag 200-100 MG Orally Once a day 2 tablets 24h Active Fluticasone Propionate 50 MCG/ACT Nasally Once a day 1 spray in each nostril 24h Mar, 30 day(s) Active Multi Complete Active Loratadine Allergy Relief 10 MG Orally Once a day 1 tablet on the tongue and allow to dissolve 24h Active Eye Health Formula 1 by oral route Once a day 24h Active Probiotic 1 Orally Once a day 24h Active Tessalon Perles 100 MG Orally Three times a day 1 capsule as needed 8h 14 Mar, 2016 Active RESULTS Name Result Date Reference Range Echo 2D PROCEDURES Procedure Date Ordered Related Diagnosis Body Site Office Visit, Est Pt., Level 3 Mar 27, 2016 IMMUNIZATIONS No Known Immunizations
--- OUTSIDE RECORDS SUMMARY | 2017-09-16 20:44 | XMS REPORT ---
Author Author TORI VEGA Organization [employer] Address Unknown Phone Unavailable Care Team Providers Care Certified Legal Investigator Name Role Phone TORI VEGA CP Unavailable Allergies, Adverse Reactions, Alerts Substance Reaction Event Type N.K.D.A. Info Not Available Non Drug Allergy Problems Problem Type Condition Code Onset Dates Condition Status Assessment URI, acute J06.9 Active Medications Medication Code System Code Instructions Start Date End Date Status Dosage Loratadine Allergy Relief [facility] [address] 10 MG Orally Once a day 1 tablet on the tongue and allow to dissolve Multi Complete [facility] [address] Orally not defined Estradiol [facility] [address]-52 0.1 MG/GM Vaginal as directed September 26, 2015 instill 0.2mg daily x 2 weeks and then instill 0.2 mg twice weekly Mjfcysso-Jcoquwgyc-PQ [facility] [address]-89 3.5-96788-0 Otic Three times a day October 01, 2015 4 drops into affected ear Albuterol Sulfate [facility] [address]-49 108 (90 Base) MCG/ACT Inhalation every 4 hrs October 12, 2015 1 puff as needed Grape Seed Complex [facility] [address] 50 mg Orally Once a day 2 tablets Raji/Mag [facility] [address] 200-100 MG Orally Once a day 2 tablets Probiotic [facility] [address] 1 Orally Once a day not defined Eye Health Formula NDC 0 1 by oral route Once a day not defined Flonase [facility] [address]-25 50 MCG/ACT Nasally Twice a day October 12, 2015 1 spray in each nostril Dietary Management Product NDC 0 2 Orally Once a day not defined Procedures Procedure Coding System Code Date Office Visit, Est Pt., Level 3 CPT-4 67564 October 12, 2015 MEASURE BLOOD OXYGEN LEVEL CPT-4 37684 October 12, 2015 Vital Signs Date/Time: October 12, 2015 Cardiac Monitoring Heart Rate 74 bpm Weight 309.3 lbs Height 63 in Blood Pressure Diastolic 76 mmHg Blood Pressure Systolic 104 mmHg Results No Known Results Summary Purpose [employer] Submission
--- OUTSIDE RECORDS SUMMARY | 2017-09-16 20:44 | XMS REPORT ---
Author Author FRACISCO MCINTOSH [facility] Address [address] [place] [address] Care Team Providers Care Household Cook Name Role Phone FRACISCO MCINTOSH Unavailable PROBLEMS Type Condition ICD9-CM Code UKM23-PN Code Onset Dates Condition Status SNOMED Code Problem Chest pain R07.9 Active 37727566 Problem Left bundle branch block (LBBB) I44.7 Active 80563176 Problem Essential hypertension I10 Active 87832950 Problem Seasonal allergic rhinitis due to other allergic trigger J30.89 Active 733002693 Problem Morbid obesity, unspecified obesity type E66.01 Active 140594652 Problem Low vitamin D level E55.9 Active 359364353 ALLERGIES Unknown Allergies SOCIAL HISTORY No smoking Hx information available PLAN OF CARE VITAL SIGNS MEDICATIONS Unknown Medications RESULTS No Results PROCEDURES No Known procedures IMMUNIZATIONS No Known Immunizations
--- OUTSIDE RECORDS SUMMARY | 2017-09-16 20:44 | XMS REPORT ---
Author Author FRACISCO MCINTOSH Organization [facility] Address [address] [place] [address] Care Team Providers Care Strategic Planning Consultant Name Role Phone FRACISCO MCINTOSH Unavailable PROBLEMS Type Condition ICD9-CM Code LGO16-IQ Code Onset Dates Condition Status SNOMED Code Problem Chest pain R07.9 Active 88212714 Problem Left bundle branch block (LBBB) I44.7 Active 33375671 Problem Essential hypertension I10 Active 98740025 Problem Seasonal allergic rhinitis due to other allergic trigger J30.89 Active 505180504 Problem Morbid obesity, unspecified obesity type E66.01 Active 542170114 Problem Low vitamin D level E55.9 Active 977547371 ALLERGIES Substance Reaction Event Type Date Status N.K.D.A. Unknown Non Drug Allergy Apr, Unknown SOCIAL HISTORY No smoking Hx information available PLAN OF CARE Activity Details Follow Up 6 Months Reason: VITAL SIGNS Height 63 in 2016-04-20 Weight 303.4 lbs 2016-04-20 Temperature 97.8 degrees Fahrenheit 2016-04-20 Heart Rate 78 bpm 2016-04-20 Respiratory Rate 16 2016-04-20 BMI 53.74 kg/m2 2016-04-20 Blood pressure systolic 126 mmHg 2016-04-20 Blood pressure diastolic 86 mmHg 2016-04-20 MEDICATIONS Medication Instructions Dosage Frequency Start Date End Date Duration Status Loratadine Allergy Relief 10 MG Orally Once a day 1 tablet on the tongue and allow to dissolve 24h Active Multi Complete Active Lisinopril-Hydrochlorothiazide 10-12.5 MG Orally Once a day 1 tablet 24h Apr, Active Meclizine HCl 25 MG Orally Once a day 1 tablet as needed 24h Feb, 10 day(s) Active Grape Seed Complex 50 mg Orally Once a day 2 tablets 24h Active Aspirin Adult Low Dose 81 MG Orally Once a day 1 tablet 24h Active Probiotic 1 Orally Once a day 24h Active Tessalon Perles 100 MG Orally Three times a day 1 capsule as needed 8h Mar, Active RESULTS No Results PROCEDURES Procedure Date Ordered Related Diagnosis Body Site Office Visit, Est Pt., Level 3 Apr 20, 2016 IMMUNIZATIONS No Known Immunizations
--- OUTSIDE RECORDS SUMMARY | 2017-09-16 20:44 | XMS REPORT ---
Author Author FRACISCO MCINTOSH Organization [facility] Address [address] [place] [address] Care Team Providers Care Siebel Administrator Name Role Phone FRACISCO MCINTOSH Unavailable PROBLEMS Type Condition ICD9-CM Code [id number] Code Onset Dates Condition Status SNOMED Code Problem Chest pain R07.9 Active 38346353 Problem Left bundle branch block (LBBB) I44.7 Active 53362088 Problem Essential hypertension I10 Active 18775956 Problem Seasonal allergic rhinitis due to other allergic trigger J30.89 Active 680056776 Problem Morbid obesity, unspecified obesity type E66.01 Active 758218939 Problem Low vitamin D level E55.9 Active 933265226 ALLERGIES Unknown Allergies SOCIAL HISTORY No smoking Hx information available PLAN OF CARE VITAL SIGNS Height 63 in 2016-04-28 Heart Rate 80 bpm 2016-04-28 Blood pressure systolic 122 mmHg 2016-04-28 Blood pressure diastolic 70 mmHg 2016-04-28 MEDICATIONS Medication Instructions Dosage Frequency Start Date End Date Duration Status Multi Complete Active Grape Seed Complex 50 mg Orally Once a day 2 tablets 24h Active Probiotic 1 Orally Once a day 24h Active Aspirin Adult Low Dose 81 MG Orally Once a day 1 tablet 24h Active Loratadine Allergy Relief 10 MG Orally Once a day 1 tablet on the tongue and allow to dissolve 24h Active Lisinopril-Hydrochlorothiazide 10-12.5 MG Orally Once a day 1 tablet 24h Apr, Active Tessalon Perles 100 MG Orally Three times a day 1 capsule as needed 8h 14 Mar, 2016 Active Meclizine HCl 25 MG Orally Once a day 1 tablet as needed 24h Feb, 10 day(s) Active RESULTS No Results PROCEDURES No Known procedures IMMUNIZATIONS No Known Immunizations
--- OUTSIDE RECORDS SUMMARY | 2017-09-16 20:44 | XMS REPORT ---
Author Author FRACISCO Minor [facility] Address [address] [place] [address] Care Team Providers Care Property Economist Name Role Phone FRACISCO Minor Unavailable PROBLEMS Type Condition ICD9-CM Code UFQ53-DE Code Onset Dates Condition Status SNOMED Code Problem Chest pain R07.9 Active 16015796 Problem Left bundle branch block (LBBB) I44.7 Active 93681048 Problem Essential hypertension I10 Active 16009553 Problem Seasonal allergic rhinitis due to other allergic trigger J30.89 Active 501597227 Problem Morbid obesity, unspecified obesity type E66.01 Active 561576493 Problem Low vitamin D level E55.9 Active 657775889 ALLERGIES No Information SOCIAL HISTORY Never Assessed [...]
--- OUTSIDE RECORDS SUMMARY | 2017-09-16 20:44 | XMS REPORT ---
Author Author TESS Elena Organization [facility] Address [address] [place] [address] Care Team Providers Care Digital X Ray Service Engineer Name Role Phone TESS Elena Unavailable PROBLEMS Type Condition ICD9-CM Code KFL69-WI Code Onset Dates Condition Status SNOMED Code Problem Chest pain R07.9 Active 43993323 Problem Left bundle branch block (LBBB) I44.7 Active 73359957 Problem Essential hypertension I10 Active 84618763 Problem Seasonal allergic rhinitis due to other allergic trigger J30.89 Active 472321606 Problem Morbid obesity, unspecified obesity type E66.01 Active 963171355 Problem Low vitamin D level E55.9 Active 861274509 ALLERGIES Unknown Allergies SOCIAL HISTORY No smoking Hx information available PLAN OF CARE VITAL SIGNS MEDICATIONS Unknown Medications RESULTS No Results PROCEDURES No Known procedures IMMUNIZATIONS No Known Immunizations
--- OUTSIDE RECORDS SUMMARY | 2017-09-16 20:45 | XMS REPORT ---
Author Author AIMEE Jeong [facility] Address [address] [address] Care Team Providers Care Carpenter/Labor Name Role Phone AIMEE Jeong Unavailable PROBLEMS Type Condition ICD9-CM Code [id number] Code Onset Dates Condition Status SNOMED Code Problem Chest pain R07.9 Active 30743334 Problem Left bundle branch block (LBBB) I44.7 Active 60724602 Problem Essential hypertension I10 Active 75504454 Problem Seasonal allergic rhinitis due to other allergic trigger J30.89 Active 640765529 Problem Morbid obesity, unspecified obesity type E66.01 Active 001978576 Problem Low vitamin D level E55.9 Active 261846239 ALLERGIES Unknown Allergies SOCIAL HISTORY No smoking Hx information available PLAN OF CARE VITAL SIGNS Height 63 in 2016-04-13 Heart Rate 82 bpm 2016-04-13 Blood pressure systolic 132 mmHg 2016-04-13 Blood pressure diastolic 80 mmHg 2016-04-13 MEDICATIONS Unknown Medications RESULTS No Results PROCEDURES No Known procedures IMMUNIZATIONS No Known Immunizations
--- OUTSIDE RECORDS SUMMARY | 2017-09-16 20:45 | XMS REPORT | Continuity of Care Document ---
Author Author [facility] Organization [facility] Address [facility] [address] [place] [phone] Phone Unavailable Support Name Relationship Address Phone Dereje Aldana M.D. Caregiver [address] [place] [address] GISELLA CARPENTER MD Caregiver [address] [place] [phone] Unavailable HARI CAN MD Caregiver [address] [place] [phone] CRISTOBAL LORENZO Next Of Kin NOT SURE INDEPENDENCE, [place] [address] Insurance Providers Payer Name Policy Number Subscriber Name Relationship Blue Cross/Blue [facility] [id number] Edi Mccain 18 Self / Same As Patient Advance Directives Directive Response Recorded Date/Time Do you have an Advanced Directive? No 06/27/08 3:04pm Advance Directives No 04/03/16 2:38am Living Will No 04/03/16 2:38am Power of Theoretical Physicist for Health Care No 04/03/16 2:38am Organ, Tissue, or Eye Donor Yes 04/03/16 2:38am Do you have a signed organ donor card? No 06/27/08 3:04pm Chief Complaint and Reason for Visit Chief Complaint CHEST PAIN Reason for Visit Chest pain Hypomagnesemia Problems Active Problems Medical Problem Onset Date Status Chest pain Unknown Acute Hypomagnesemia Unknown Acute Medications Current Home Medications Medication Dose Units Route Directions Days/Qty Instructions Start Date Benzonatate 100 Mg 100 Mg Oral Three Times A Day as needed for Cough 30 as needed for cough. 04/03/16 Aspirin 81 Mg 81 Mg Oral Daily 30 04/03/16 Past Home Medications Medication Directions Ordered Status Bisoprolol Fumarate/Hctz 5 Mg Tab, 5 Mg Oral Daily 12/02/10 Discontinued Aspirin 81 Mg Tablet.dr, 2 Tab Oral Daily 12/02/10 Discontinued Cetirizine Hcl 10 Mg Capsule, 10 Mg Oral Daily 11/25/11 Discontinued Magnesium Oxide 400 Mg Tablet, 400 Mg Oral Twice A Day 11/25/11 Discontinued Loratadine 10 Mg Tablet, 10 Mg Oral Daily 11/25/11 Discontinued [Vitality] , 1 Tab Oral Daily 11/25/11 Discontinued Aspirin 81 Mg Tablet.dr, 81 Mg Oral 11/25/11 Discontinued Magnesium Chloride 64 Mg Tablet.sa, 64 Mg Oral Daily 11/25/11 Discontinued [Vitality Calcium] , 1 Tab Oral Daily 11/25/11 Discontinued Metronidazole 500 Mg Tablet, 500 Mg Oral Three Times A Day 11/30/11 Discontinued Ciprofloxacin Hcl 500 Mg Tablet, 500 Mg Oral Twice A Day 11/30/11 Discontinued Acetaminophen/Hydrocodone Bitart 1 Tab Tablet, 1 Tab Oral Every 8 Hours As Needed 11/30/11 Discontinued Propylene Glycol 10 Ml Drops, 1 Ml Each Eye Twice A Day 09/25/15 Discontinued Loratadine 10 Mg Tablet, 10 Mg Oral Daily As Needed 09/25/15 Discontinued [Stimulant-Free Fat] , Unknown Dose Oral 09/25/15 Discontinued [Digestive Health] , Unknown Dose Oral Daily 09/25/15 Discontinued [Heart Health Supp] , Unknown Dose Oral Daily 09/25/15 Discontinued Multivitamin No.44/Vit D3/K 1 Each Capsule, 1 Cap Oral Daily 09/25/15 Discontinued [Calcium 250MG] , 2 Tab Oral Daily 09/25/15 Discontinued Acetaminophen 500 Mg Tablet, 500 Mg Oral Every 3 Hours As Needed 09/25/15 Discontinued Ibuprofen (Motrin 200 Mg Tab*) 200 Mg Tablet, 200 Mg Oral Every 4-6 Hours Discontinued [Vision Supplement] , 1 Tab Oral Daily 09/25/15 Discontinued Cholecalciferol 5 000 Tablet, 17506 Unit Oral Weekly 09/27/15 Discontinued Ibuprofen 600 Mg Tablet, 600 Mg Oral Three Times A Day 09/27/15 Discontinued [Estro Gel] , Unknown Dose 09/27/15 Discontinued Social History Social History Problem Response Recorded Date/Time Smoking Status Never smoker 04/03/2016 2:38am Tobacco Use Denies Use 04/03/2016 1:31am Alcohol Use none 04/03/2016 1:31am Drug Use none 04/03/2016 1:31am Query Response Start Date Stop Date Smoking Status Never smoker Hospital Discharge Instructions Discharge Instructions Provider Instructions Make Appointment with: Other: Dr Loya in 2 weeks, follow up ECHO results Diet: 2gm Sodium Smoking Cessation If you are a smoker, the following is recommended: Stop all tobacco use; for help quitting, please call [phone]. Notify Physician If: Weight Gain More Than 5lb, Shortness of Breath Additional Instructions: You were admitted for chest palpitations. An echocardiogram was performed and the results will be ready next week. A prescription of daily aspirin was sent to help prevent coronary artery disease. Nursing Instructions Flu Vaccine Received this Visit: No Comment: ref Pneumonia Vaccine Received this Visit: No Comment: ref Education #1 Topic: chest pain- non specific Methods: Handout Response: Verbalize understanding Recipient: Patient Note: Follow up appointment has been made for you with Dr juarez April 20 at 1pm. they will be in the new office on [address]. Patient specific education materials provided?: Yes Patient Request Electronic Discharge Instructions: No Patient Received Electronic Discharge Instructions: No Patient Health Summary printed/downloaded for the patient?: Yes Plan of Care Discharge Date 04/03/16 3:18pm Disposition 01 HOME, [facility],ASSISTED LIVING Instructions/Education Provided CHEST PAIN - NONSPECIFIC Prescriptions See Medication Section Care Plan and Goals See Discharge Instructions Section Functional Status Query Response Date Recorded Brea Coma Scale Total 15 April 03, 2016 7:50am Patient Behavior Appropriate Cooperative April 03, 2016 7:50am Allergies, Adverse Reactions, Alerts No known allergies. Immunizations Name Given Type Hx Diphtheria, Pertussis, Tetanus Vaccination Up To Date Historical Hx Influenza Vaccination N NEVER RECIEVED Historical Hx Pneumococcal Vaccination N NEVER RECIEVED Historical Vital Signs Acute Vital Signs Vital Response Date/Time Temperature (Fahrenheit) 97.1 degrees F (97.6 - 99.5) 04/03/2016 2:33pm Temperature Source Temporal Artery 04/03/2016 2:33pm Pulse Rate (adult) 69 bpm (60 - 90) 04/03/2016 2:33pm Respiratory Rate 18 bpm (12 - 24) 04/03/2016 2:33pm Blood Pressure 97/49 mm Hg 04/03/2016 2:33pm O2 Sat by Pulse Oximetry 96 % (90 - 100) 04/03/2016 2:33pm Oxygen Delivery Method 04/03/2016 2:30am Pain Intensity 1 04/03/2016 5:59am Pain Location Body Site Modifier 04/03/2016 2:48pm Pain Description 04/03/2016 5:57am Height 5 ft 2 in Weight 302 lb Body Mass Index 55.0 kg/m^2 Results Laboratory Results Test Name Result Units Flags Reference Collection Date/Time Result Date/ Time Comments White Blood Count 7.3 K/uL 4.8-10.8 04/03/2016 1: 04/03/2016 1: 24am Red Blood Count 4.13 M/uL L 4.20-5.40 04/03/2016 1: 04/03/2016 1: 24am Hemoglobin 11.8 gm/dL L 12.0-16.0 04/03/2016 1: 04/03/2016 1:24am Hematocrit 34.9 % L 37.0-47.0 04/03/2016 1: 04/03/2016 1:24am Mean Corpuscular Volume 84.4 fL 81.0-99.0 04/03/2016 1: 04/03/2016 1:24am Mean Corpuscular Hemoglobin 28.5 pg 27.0-31.0 04/03/2016 1: 2015 1:24am Mean Corpuscular Hemoglobin Concent 33.7 g/dL 30.0-37.0 04/03/2016 1: 04/03/2016 1:24am Red Cell Distribution Width 14.8 % H 11.5-14.5 04/03/2016 1: 2015 1:24am Platelet Count 253 K/uL 130-400 04/03/2016 1: 04/03/2016 1:24am Mean Platelet Volume 8.0 fL 7.4-10.4 04/03/2016 1: 04/03/2016 1: 24am Neutrophils (%) (Auto) 71.7 % 42.2-75.2 04/03/2016 1: 04/03/2016 1: 24am Lymphocytes (%) (Auto) 20.9 % 20.5-51.1 04/03/2016 1: 04/03/2016 1: 24am Monocytes (%) (Auto) 4.5 % 1.7-9.3 04/03/2016 1: 04/03/2016 1:24am Eosinophils (%) (Auto) 2.5 % 0-3 04/03/2016 1:04/03/2016 1:24am Basophils (%) (Auto) 0.4 % 0.0-1.0 04/03/2016 1:04/03/2016 1:24am Neutrophils # (Auto) 5.2 K/uL 2.0-6.9 04/03/2016 1:04/03/2016 1: 24am Lymphocytes # (Auto) 1.5 K/uL 1.2-3.4 04/03/2016 1:04/03/2016 1: 24am Monocytes # (Auto) 0.3 K/uL 0.1-0.6 04/03/2016 1:04/03/2016 1: 24am Eosinophils # (Auto) 0.2 K/uL 0.0-0.7 04/03/2016 1:04/03/2016 1: 24am Basophils # (Auto) 0.0 K/uL 0.0-0.2 04/03/2016 1:04/03/2016 1: 24am Random Glucose 112 mg/dL H 70-110 04/03/2016 1:04/03/2016 1:39am Blood Urea Nitrogen 18 mg/dL 7-18 04/03/2016 1:04/03/2016 1:39am Creatinine 0.6 mg/dL 0.55-1.02 04/03/2016 1:04/03/2016 1:39am Sodium Level 140 mEq/L 136-145 04/03/2016 1:04/03/2016 1:39am Potassium Level 3.8 mEq/L 3.5-5.0 04/03/2016 1:04/03/2016 1:39am Chloride Level 106 mEq/L 98-107 04/03/2016 1:04/03/2016 1:39am Carbon Dioxide Level 28.3 mEq/L 21-32 04/03/2016 1:04/03/2016 1: 39am Calcium Level 9.0 mg/dL 8.8-10.5 04/03/2016 1:04/03/2016 1:39am Magnesium Level 1.7 mg/dL L 1.8-2.4 04/03/2016 1:17a04/03/2016 1:39am Total Protein 6.4 gm/dL 6.4-8.2 04/03/2016 1:17a04/03/2016 1:39am Albumin 3.2 gm/dL L 3.4-5.0 04/03/2016 1:17a04/03/2016 1:39am Total Bilirubin 0.26 mg/dL 0.00-1.00 04/03/2016 1:04/03/2016 1: 39am Aspartate Amino Transf (AST/SGOT) 7 U/L L 15-37 04/03/2016 1:2015 1:39am Alanine Aminotransferase (ALT/SGPT) 25 U/L 12-78 04/03/2016 1: 1:39am Total Alkaline Phosphatase 83 U/L 46-116 04/03/2016 1:17am 04/03/2016 1 :39am Troponin I 0.02 NG/ML 0.0-0.2 04/03/2016 12:50pm 04/03/2016 1:41pm Glomerular Filtration Rate Calc 108.4 mL/min 04/03/2016 1:17am 2015 1:39am Procedures Procedure Status Date Provider(s) Portable x-ray of chest Completed 04/03/16 GISELLA CARPENTER MD Two dimensional echocardiography with M-mode and color flow imaging Completed 04/03/16 HARI CAN MD Encounters Encounter Location Arrival/Admit Date Discharge/Depart Date Attending Provider Discharged Inpatient (obs) [place] 04/03/16 2:22am 04/03/16 3:18pm HARI CAN MD Recent Diagnosis Chest pain Hypomagnesemia
--- OUTSIDE RECORDS SUMMARY | 2017-09-16 20:45 | XMS REPORT ---
Author Author AIMEE ESPINOSA [facility] eClinical[employer] Address Unknown Phone Unavailable Care Team Providers Care Pharmaceutical Development Technician Name Role Phone AIMEE ESPINOSA CP Unavailable Allergies, Adverse Reactions, Alerts Substance Reaction Event Type N.K.D.A. Info Not Available Non Drug Allergy Problems Problem Type Condition ICD-9 Code Onset Dates Condition Status Problem Allergic rhinitis due to pollen 477.0 Active Problem Screening for hypertension V81.1 Active Problem Acute pharyngitis 462 Active Problem Chest pain, unspecified 786.50 Active Assessment Allergic rhinitis 477.9 Active Medications Medication Code System Code Instructions Start Date End Date Status Dosage Fluticasone Propionate NDC [address]-49 50 MCG/ACT Nasally Once a day Dec 11, 2014 1 spray in each nostril DayQuil Multi-Symptom NDC 0 not defined Procedures Procedure Coding System Code Date Office Visit, Est Pt., Level 3 CPT-4 68748 Dec 11, 2014 Vital Signs Date/Time: Dec 11, 2014 Temperature 98.0 F Weight 290 lbs Height 63 in BMI 51.37 Index Blood Pressure Diastolic 80 mmHg Blood Pressure Systolic 128 mmHg Cardiac Monitoring Heart Rate 102 bpm Results No Known Results Summary Purpose eClinicalWorks Submission
--- OUTSIDE RECORDS SUMMARY | 2017-09-16 20:45 | XMS REPORT ---
Author Author AIMEE ESPINOSA [facility] eClinical[employer] Address Unknown Phone Unavailable Care Team Providers Care Restaurant Assistant Manager Name Role Phone AIMEE ESPINOSA CP Unavailable Allergies, Adverse Reactions, Alerts Substance Reaction Event Type N.K.D.A. Info Not Available Non Drug Allergy Problems Problem Type Condition Code Onset Dates Condition Status Problem Allergic rhinitis due to pollen 477.0 Active Problem Screening for hypertension V81.1 Active Problem Acute pharyngitis 462 Active Assessment Dysuria R30.0 Active Problem Chest pain, unspecified 786.50 Active Assessment Urinary tract infection, site not specified N39.0 Active Medications Medication Code System Code Instructions Start Date End Date Status Dosage Macrobid [facility] [address]-16 100 MG Orally every 12 hrs 1 capsule with food Loratadine Allergy Relief [facility] [address] 10 MG Orally Once a day 1 tablet on the tongue and allow to dissolve Procedures Procedure Coding System Code Date URINE CULTURE/COLONY COUNT CPT-4 69421 Mar 14, 2015 Office Visit, Est Pt., Level 3 CPT-4 30302 Mar 14, 2015 URINALYSIS, AUTO, W/O SCOPE CPT-4 52972 Mar 14, 2015 Vital Signs Date/Time: Mar 14, 2015 Temperature 98.7 F Weight 293 lbs Height 63 in BMI 51.90 Index Blood Pressure Diastolic 80 mmHg Blood Pressure Systolic 128 mmHg Cardiac Monitoring Heart Rate 84 bpm Results Name Result Date Reference Range Unit Abnormality Flag UA LONG DIP (IN HOUSE) ----NANCI neg [id number] ----NIT pos [id number] ----SG 1.025 [id number] ----KET neg [id number] ----KILEY neg [id number] ----GLU neg [id number] ----Odor no [id number] ----pH 6.0 20150314 ----BLO + [id number] ----URO 0.2 [id number] ----Protein + [id number] ----Lot # [id number] ----Exp date [id number] ----Clarity clear [id number] ----Color yellow [id number] Summary Purpose eClinicalWorks Submission
--- OUTSIDE RECORDS SUMMARY | 2017-09-16 20:45 | XMS REPORT ---
Author Author MAGY LEA Organization [employer] Address Unknown Phone Unavailable Care Team Providers Care Customer Care Voice Consultant Name Role Phone MAGY LEA CP Unavailable Allergies, Adverse Reactions, Alerts Substance Reaction Event Type N.K.D.A. Info Not Available Non Drug Allergy Problems Problem Type Condition Code Onset Dates Condition Status Assessment Vitamin D deficiency, unspecified E55.9 Active Assessment Annual physical exam Z00.00 Active Medications Medication Code System Code Instructions Start Date End Date Status Dosage ProAir HFA [facility] [address]-70 108 (90 Base) MCG/ACT Inhalation every 4 hrs Dec 25, 2014 1-2 puffs as needed Fluticasone Propionate [facility] [address]-19 50 MCG/ACT Nasally Once a day Dec 11, 2014 1 spray in each nostril Loratadine Allergy Relief [facility] [address] 10 MG Orally Once a day 1 tablet on the tongue and allow to dissolve Procedures Procedure Coding System Code Date COMPREHEN METABOLIC PANEL CPT-4 70803 September 19, 2015 LIPID PANEL CPT-4 91660 September 19, 2015 COMPLETE CBC W/AUTO DIFF WBC CPT-4 52909 September 19, 2015 Preventive Care Est Pt. Age 40-64 CPT-4 41195 September 19, 2015 ASSAY OF FREE THYROXINE CPT-4 07375 September 19, 2015 ASSAY THYROID STIM HORMONE CPT-4 28667 September 19, 2015 VENIPUNCT, ROUTINE* CPT-4 90188 September 19, 2015 ASSAY OF VITAMIN D CPT-4 55773 September 19, 2015 Vital Signs Date/Time: September 19, 2015 Cardiac Monitoring Heart Rate 86 bpm Weight 297.4 lbs Height 63 in BMI 52.68 Index Blood Pressure Diastolic 76 mmHg Blood Pressure Systolic 122 mmHg Results No Known Results Summary Purpose eClinicalWorks Submission
--- OUTSIDE RECORDS SUMMARY | 2017-09-16 20:45 | XMS REPORT ---
Author Author FRACISCO Minor Organization [facility] Address [address] [place] [address] Care Team Providers Care Transactional Paralegal Name Role Phone FRACISCO Minor Unavailable PROBLEMS Type Condition ICD9-CM Code UMA70-GK Code Onset Dates Condition Status SNOMED Code Problem Chest pain R07.9 Active 25433722 Problem Left bundle branch block (LBBB) I44.7 Active 88449275 Problem Essential hypertension I10 Active 59713964 Problem Seasonal allergic rhinitis due to other allergic trigger J30.89 Active 496126068 Problem Morbid obesity, unspecified obesity type E66.01 Active 047962883 Problem Low vitamin D level E55.9 Active 495678731 ALLERGIES No Information ENCOUNTERS Encounter Location Date Diagnosis [facility] [address] [place] [id number] [id number] Jun, [facility] [address] [place] [id number] [place] [id number] Jun, Lymphadenopathy of head and neck R59.1 [facility] [address] [id number] [id number] Jun, BMI 45.0-49.9, adult Z68.42 ; Other specified bacterial agents as the cause of diseases classified elsewhere B96.89 ; Acute pharyngitis due to other specified organisms J02.8 ; Sore throat J02.9 and Cough R05 [facility] [id number] [address] Jun, [facility] [id number], [place] [address] Mar, Essential hypertension I10 [facility] [address] [place], [place] [id number] [place] [address] 09 Mar, 2017 Seasonal allergic rhinitis due to other allergic trigger J30.89 [facility] [address] [place] [id number] [place] [address] 04 Mar, 2017 [facility] [address] [place] [id number] [place] [address] 05 Dec, 2016 Essential hypertension I10 [facility] [address] [address] Nov, Essential hypertension I10 [facility] [address] [address] Oct, [facility] [address] [address] Oct, Facial eczema L30.9 ; Essential hypertension I10 and Wellness examination Z00.00 [facility] [address] [place] [id number] [place] [address] Sep, Screening for diabetes mellitus Z13.1 [facility] [address] [place] [id number] [place] [address] Sep, Screening for diabetes mellitus Z13.1 [facility] [address] [place] [id number] [place] [address] August, Dysuria R30.0 [facility] [address] [place] [id number] [place] [address] Jul, Chest pain, unspecified type R07.9 [facility] [address] [place] [id number] [place] [address] 07 Jul, 2016 Chest pain R07.9 and Left bundle branch block (LBBB) I44.7 [facility] [address] [place] [id number] [place] [address] 05 Jul, 2016 Urinary tract infection N39.0 [facility] [address] [place] [address] 05 Jul, 2016 [facility] [address] [place] [id number], [place] [address] Jul, [facility] [address] [place] [id number], [place] [address] Jul, Dysuria R30.0 ; Low vitamin D level E55.9 ; Encounter for immunization Z23 ; Essential hypertension I10 ; Morbid obesity, unspecified obesity type E66.01 ; Edema, unspecified type R60.9 and Tinea corporis B35.4 [facility] [id number] [id number] Jul, [facility] [address] [place] [id number] [place] [phone] Jun, Cough R05 [place] [address] [place] [id number] [place] [id number] Apr, Blood pressure check Z01.30 [place] [address] [place] [id number] [phone] Apr, [place] [address] [place] [id number] [place] [id number] Apr, [facility] [address] [place] [id number], [place] [address] Apr, Viral syndrome B34.9 [facility] [address] [place] [address] [place] [address] Apr, [facility] [id number], [place] [address] Apr, Essential hypertension I10 [place] [address] [place] [id number] [phone] Apr, Blood pressure check Z01.30 [place] [address] [place] [address] [place] [id number] Apr, Blood pressure check Z01.30 [address] [id number] Apr, Blood pressure check Z01.30 [address] [id number] Apr, [place] [address]00565100[place] [id number] Apr, [place] [id number] [place] [id number] Apr, Blood pressure check Z01.30 [place] [address] [place] [id number] Apr, Blood pressure check Z01.30 [id number] [address] Apr, Blood pressure check Z01.30 [address] [id number] Apr, Essential hypertension I10 and Heart palpitations R00.2 [place] [address]00565100[place] [address] Mar, Seasonal allergic rhinitis due to other allergic trigger J30.89 and Heart murmur R01.1 [facility] [address] [id number][place] [id number] Mar, [place] [id number] [address] Mar, Viral syndrome B34.9 [place] [address]00565100[place] [phone] Feb, [address] [id number] Feb, Dizziness R42 [place] [address]00565100[place] [id number] Oct, [address]00565100[place] [address] Oct, [place] [id number] [place] [phone] Oct, URI, acute J06.9 [place] [address] [place] [id number] Sep, Right otitis media, unspecified chronicity, unspecified otitis media type H66.91 and Acute non-recurrent maxillary sinusitis J01.00 [place] [address] [place] [address] [id number] Sep, [place] [address] [place] [phone] Sep, [place] [address] [place] [id number] Sep, Vitamin D deficiency E55.9 ; Vaginal dryness, menopausal N95.1 ; Frequent headaches R51 and Impacted cerumen of right ear H61.21 [place] [address] [place] [id number] Sep, Annual physical exam Z00.00 and Vitamin D deficiency, unspecified E55.9 [id number] [id number] Mar, Urinary tract infection, site not specified N39.0 and Dysuria R30.0 [place] [id number] [place] [id number] Dec, Viral syndrome 079.99 [place] [id number] [place] [id number] Dec, Allergic rhinitis 477.9 [place] [id number] [place] [id number] Oct, Herpes zoster 053.9 [place] [address] [place] [address] [id number] [phone] August, Screening for lipoid disorders V77.91 and Screening for diabetes mellitus V77.1 [facility] [address] [id number], [place] [address] Jul, 2014 [facility] [address] [id number], [place] [address] Jul, [facility] [address] [place] [address] [id number] [id number] Jun, [facility] [address] [id number], [place] [address] Jun, [facility] [address] [place] [id number] [id number] Mar, [facility] [address] [id number], [place] [address] Mar, [place] [address] [place] [id number] [id number] Mar, [facility] [address] [id number], [place] [address] Mar, [facility] [address] [place] [address] [id number] [phone] Jan, [facility] [address] [id number], [place] [address] Jan, IMMUNIZATIONS No Known Immunizations SOCIAL HISTORY Never Assessed [facility]ASON [facility] VISIT [facility] VITAL SIGNS Height 63 in 2016-11-02 Heart Rate 70 bpm 2016-11-02 Blood pressure systolic 122 mmHg 2016-11-02 Blood pressure diastolic 70 mmHg 2016-11-02 MEDICATIONS Unknown Medications RESULTS No Results PROCEDURES No Known procedures INSTRUCTIONS MEDICATIONS ADMINISTERED No Known Medications MEDICAL (GENERAL) HISTORY Type Description Date Medical History hypertension Medical History obesity Medical History allergic rhinitis Medical History menopause Surgical History appendecomy 2011 Surgical History hysterectomy 1999 Surgical History broken nose repair Hospitalization History Surgery(s)/Childbirth(s) only Hospitalization History Hypertension 2015
--- OUTSIDE RECORDS SUMMARY | 2017-09-16 20:46 | XMS REPORT | Continuity of Care Document ---
Author Author [facility] Address Unknown Phone Unavailable Allergies Active Description Code Type Severity Reaction Onset Reported/Identified Relationship to Patient Clinical Status Yes NONE N/A N/A Yes NKDA N/A N/A Medications Medication Packaging Start Date Stop Date Route Dosage Sig HYDROCHLOROTHIAZIDE ORAL 2010 ORAL [id number] daily BISOPROLOL FUMARATE ORAL 2010 ORAL 3030 daily MAG-OX 400 ORAL 04/24/2011 ORAL 6060 twice daily HYDROCHLOROTHIAZIDE ORAL 2011 ORAL [id number] daily BISOPROLOL FUMARATE ORAL 2011 ORAL 3030 daily PROZAC ORAL 10/05/2011 ORAL 3030 at bedtime ANTIVERT ORAL 05/20/2012 ORAL [id number] q6h HYDROCHLOROTHIAZIDE ORAL 2012 ORAL [id number] daily ZIAC ORAL 07/10/2013 ORAL 6060 DAILY BISOPROLOL-HYDROCHLOROTHIAZIDE ORAL 09/14/2013 09/25/2015 ORAL 3030 daily ASPIRIN EC ORAL 09/14/2013 09/25/2015 ORAL 3030 daily ZIAC ORAL 01/15/2014 ORAL 6060 DAILY ZIAC ORAL 01/22/201402/2014 ORAL 6060 DAILY ZIAC ORAL 03/15/2014 ORAL 9090 DAILY Problems Date Dx Coded Attending Type Code Diagnosis Diagnosed By 10/31/2007 BLAINE LYNCH MD 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, 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 10/31/2007 BLAINE LYNCH MD 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, 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 10/31/2007 BLAINE LYNCH MD 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, 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 09/08/2008 BLAINE LYNCH MD 782.3 EDEMA 09/08/2008 BLAINE LYNCH MD 786.05 SHORTNESS OF BREATH 09/08/2008 BLAINE LYNCH MD 782.3 EDEMA 09/08/2008 BLAINE LYNCH MD 786.05 SHORTNESS OF BREATH 09/08/2008 BLAINE LYNCH MD 782.3 EDEMA 09/08/2008 BLAINE LYNCH MD 786.05 SHORTNESS OF BREATH 01/24/2014 BLAINE LYNCH MD 786.50 UNSPECIFIED CHEST PAIN 01/24/2014 BLAINE LYNCH MD 786.50 UNSPECIFIED CHEST PAIN 01/24/2014 BLAINE LYNCH MD 786.50 UNSPECIFIED CHEST PAIN 03/07/2014 BLAINE LYNCH MD 462 PHARYNGITIS ACUTE 03/07/2014 BLAINE LYNCH MD 462 PHARYNGITIS ACUTE 03/20/2014 BLAINE LYNCH MD V81.1 HYPERTENSION SCREENING Procedures Code Description [place] [address] STREP A (IN-HOUSE) 03/07/2014 2000F BLOOD PRESSURE CHECK 03/20/2014 Results There is no data. Encounters ACCT No. Visit Date/Time Discharge Status Pt. Type Provider Facility Loc./Unit Complaint [id number] 03/20/2014 09:51:00 03/20/2014 23:59:59 CLS Outpatient BLAINE LYNCH MD [id number] 03/07/2014 09:22:00 03/07/2014 23:59:59 CLS Outpatient BLAINE LYNCH MD [id number] 01/24/2014 09:18:00 01/24/2014 23:59:59 CLS Outpatient BLAINE LNYCH MD [id number] 11/15/2015 07:36:02 11/15/2015 07:36:02 DIS Outpatient [facility] [id number] 02/03/2015 06:29:17 02/03/2015 06:29:18 DIS Outpatient [id number] 03/15/2014 09:53:23 Document Registration [id number] 03/15/2014 09:53:22 Document Registration [id number] 03/15/2014 09:53:21 Document Registration [id number] 03/15/2014 09:53:20 Document Registration [id number] 03/15/2014 09:53:19 Document Registration [id number] 03/15/2014 09:53:18 Document Registration [id number] 03/15/2014 09:53:16 Document Registration [id number] 03/15/2014 09:49:57 Document Registration [id number] 03/15/2014 09:49:56 Document Registration [id number] 03/15/2014 09:48:50 Document Registration [id number] 03/15/2014 09:48:49 Document Registration [id number] 03/15/2014 09:48:48 Document Registration [id number] 03/15/2014 09:48:47 Document Registration [id number] 03/15/2014 09:47:40 Document Registration [id number] 03/15/2014 09:47:39 Document Registration [id number] 01/22/2014 13:53:59 Document Registration [id number] 01/22/2014 13:53:53 Document Registration [id number] 01/22/2014 13:53:47 Document Registration [id number] 01/22/2014 13:53:39 Document Registration [id number] 01/22/2014 13:53:31 Document Registration [id number] 01/22/2014 13:53:24 Document Registration [id number] 01/22/2014 13:53:16 Document Registration [id number] 01/22/2014 13:53:06 Document Registration [id number] 01/15/2014 09:26:29 Document Registration [id number] 01/15/2014 09:25:29 Document Registration [id number] 01/15/2014 09:25:21 Document Registration [id number] 01/15/2014 09:25:10 Document Registration [id number] 01/11/2014 09:05:02 Document Registration [id number] 06/28/2017 07:40:00 06/28/2017 23:59:59 [facility] Outpatient [facility]IE [facility]
--- OUTSIDE RECORDS SUMMARY | 2017-09-16 20:46 | XMS REPORT ---
Author Author AIMEE Jeong [facility] Address [address] [address] Care Team Providers Care Enterprise Security Architect Name Role Phone AIMEE Jeong Unavailable PROBLEMS Type Condition ICD9-CM Code GPA24-BG Code Onset Dates Condition Status SNOMED Code Problem Chest pain R07.9 Active 89917585 Problem Left bundle branch block (LBBB) I44.7 Active 75821647 Problem Essential hypertension I10 Active 46413916 Problem Seasonal allergic rhinitis due to other allergic trigger J30.89 Active 033752285 Problem Morbid obesity, unspecified obesity type E66.01 Active 694850739 Problem Low vitamin D level E55.9 Active 082041992 ALLERGIES Unknown Allergies SOCIAL HISTORY No smoking Hx information available PLAN OF CARE VITAL SIGNS Height 63 in 2016-04-10 Heart Rate 88 bpm 2016-04-10 Blood pressure systolic 138 mmHg 2016-04-10 Blood pressure diastolic 82 mmHg 2016-04-10 MEDICATIONS Unknown Medications RESULTS No Results PROCEDURES No Known procedures IMMUNIZATIONS No Known Immunizations
--- OUTSIDE RECORDS SUMMARY | 2017-09-16 20:46 | XMS REPORT ---
Author Author FRACISCO Minor Organization [facility] Address [address] [place] [address] Care Team Providers Care Rubber Stamps And Dies Supervisor Name Role Phone FRACISCO Minor Unavailable PROBLEMS Type Condition ICD9-CM Code BNB73-UK Code Onset Dates Condition Status SNOMED Code Problem Chest pain R07.9 Active 79635867 Problem Left bundle branch block (LBBB) I44.7 Active 48365146 Problem Essential hypertension I10 Active 62051305 Problem Seasonal allergic rhinitis due to other allergic trigger J30.89 Active 160641398 Problem Morbid obesity, unspecified obesity type E66.01 Active 743104052 Problem Low vitamin D level E55.9 Active 421855813 ALLERGIES No Information ENCOUNTERS Encounter Location Date Diagnosis [facility] [address] [place], [place] [id number] [id number] Jun, [facility] [address] [place] [id number] [place] [id number] Jun, Lymphadenopathy of head and neck R59.[address] [facility] [place] [address] [id number] [id number] Jun, BMI 45.0-49.9, adult Z68.42 ; Other specified bacterial agents as the cause of diseases classified elsewhere B96.89 ; Acute pharyngitis due to other specified organisms J02.8 ; Sore throat J02.9 and Cough R05 [facility] [id number] [address] Jun, [facility] [id number], [place] [address] Mar, Essential hypertension I10 [facility] [address] [place] [id number] [place] [phone] 09 Mar, 2017 Seasonal allergic rhinitis due to other allergic trigger J30.89 [facility] [address] [place] [id number] [place] [address] 04 Mar, 2017 [facility] [address] [place] [id number] [place] [address] 05 Dec, 2016 Essential hypertension I10 [facility] [address] [address] Nov, Essential hypertension I10 [facility] [address] [address] Oct, [facility] [address] [address] Oct, Facial eczema L30.9 ; Essential hypertension I10 and Wellness examination Z00.00 [facility] [address] [place] [id number] [place] [address] Sep, Screening for diabetes mellitus Z13.1 [facility] [address] [place] [id number] [place] [address] Sep, Screening for diabetes mellitus Z13.1 [facility] [address] [place] [id number] [place] [address] August, Dysuria R30.0 [facility] [address] [place] [id number] [place] [address] Jul, Chest pain, unspecified type R07.9 [facility] [address] [place] [id number] [place] [address] 07 Jul, 2016 Chest pain R07.9 and Left bundle branch block (LBBB) I44.7 [facility] [address] [place] [id number] [place] [address] 05 Jul, 2016 Urinary tract infection N39.0 [facility] [address] [place] [address] 05 Jul, 2016 [facility] [address] [place] [id number], [place] [address] Jul, [facility] [address] [place] [id number], [place] [address] Jul, Dysuria R30.0 ; Low vitamin D level E55.9 ; Encounter for immunization Z23 ; Essential hypertension I10 ; Morbid obesity, unspecified obesity type E66.01 ; Edema, unspecified type R60.9 and Tinea corporis B35.4 [facility] [id number], [place] [id number] Jul, [facility] [address] [place] [id number] [place] [phone] Jun, Cough R05 [place] [address] [place] [id number] [place] [id number] Apr, Blood pressure check Z01.30 [place] [address] [place] [address] [id number] Apr, [place] [address] [place] [id number] [place] [id number] Apr, [facility] [address] [place] [id number], [place] [address] Apr, Viral syndrome B34.9 [facility] [address] [place] [id number] [place] [address] Apr, [facility] [address]436O12075179YOMAND[place], [place] [address] Apr, Essential hypertension I10 [place] [address] [place] [address] [id number] Apr, Blood pressure check Z01.30 [place] [address] [place] [id number] [place] [id number] Apr, Blood pressure check Z01.30 [address] [id number] Apr, Blood pressure check Z01.30 [address] [id number] Apr, [place] [address] [id number] Apr, [place] [id number] [place] [id number] Apr, Blood pressure check Z01.30 [place] [address] [place] [id number] Apr, Blood pressure check Z01.30 [place] [id number] Apr, Blood pressure check Z01.30 [address] [id number] Apr, Essential hypertension I10 and Heart palpitations R00.2 [place] [address]65[place] [id number] Mar, Seasonal allergic rhinitis due to other allergic trigger J30.89 and Heart murmur R01.1 [facility] [address] [id number] [id number] Mar, [place] [id number] [id number] Mar, Viral syndrome B34.9 [place] [address]00565[place] [id number] Feb, [address] [id number] Feb, Dizziness R42 [place] [address]00565[place] [id number] Oct, [address]65[place] [id number] Oct, [place] [id number] [place] [id number] Oct, URI, acute J06.9 [place] [id number] [place] [id number] Sep, Right otitis media, unspecified chronicity, unspecified otitis media type H66.91 and Acute non-recurrent maxillary sinusitis J01.00 [place] [id number] [place] [id number] Sep, [place] [id number] [place] [id number] Sep, [place] [id number] [place] [id number] Sep, Vitamin D deficiency E55.9 ; Vaginal dryness, menopausal N95.1 ; Frequent headaches R51 and Impacted cerumen of right ear H61.21 [place] [address] [place] [id number] Sep, Annual physical exam Z00.00 and Vitamin D deficiency, unspecified E55.9 [place] [address] [id number] Mar, Urinary tract infection, site not specified N39.0 and Dysuria R30.0 [place] [id number] [place] [id number] Dec, Viral syndrome 079.99 [place] [address] [place] [id number] Dec, Allergic rhinitis 477.9 [place] [address] [place] [id number] Oct, Herpes zoster 053.9 [place] [address] [place] [address] [id number] [id number] August, Screening for lipoid disorders V77.91 and Screening for diabetes mellitus V77.1 [facility] [address] [id number], [place] [address] 14 Jul, 2014 [facility] [address] [id number] [address] Jul, [facility] [address] [place] [address] [id number] [phone] Jun, [facility] [address] [id number], [place] [address] Jun, [facility] [address] [place] [id number] [id number] Mar, [facility] [address] [id number] [address] Mar, [place] [address] [place] [id number] [id number] Mar, [facility] [address] [id number], [place] [address] Mar, [address] [id number] [phone] Jan, [place] [id number], [place] [address] Jan, IMMUNIZATIONS No Known Immunizations SOCIAL HISTORY Never Assessed REASON FOR VISIT Refill - Losartan PLAN OF CARE VITAL SIGNS MEDICATIONS Medication [...]
--- OUTSIDE RECORDS SUMMARY | 2017-09-16 20:46 | XMS REPORT ---
Author Author AIMEE FISH Organization [employer] Address Unknown Phone Unavailable Care Team Providers Care Internal Combustion Engine Assembler Name Role Phone AIMEE FISH CP Unavailable Allergies No Known Allergies Problems No Known Problems Medications No Known Medications Results No Known Results Summary Purpose [employer] Submission
--- OUTSIDE RECORDS SUMMARY | 2017-09-16 20:46 | XMS REPORT ---
Author Author AIMEE Jeong [facility] Address [address] [address] Care Team Providers Care Supervisor Ore Dressing Name Role Phone AIMEE Jeong Unavailable PROBLEMS Type Condition ICD9-CM Code DXX09-GY Code Onset Dates Condition Status SNOMED Code Problem Chest pain R07.9 Active 45932796 Problem Left bundle branch block (LBBB) I44.7 Active 83749063 Problem Essential hypertension I10 Active 88118310 Problem Seasonal allergic rhinitis due to other allergic trigger J30.89 Active 208420797 Problem Morbid obesity, unspecified obesity type E66.01 Active 085592627 Problem Low vitamin D level E55.9 Active 963178611 ALLERGIES Unknown Allergies SOCIAL HISTORY No smoking Hx information available PLAN OF CARE VITAL SIGNS Height 63 in 2016-04-09 Heart Rate 88 bpm 2016-04-09 Blood pressure systolic 138 mmHg 2016-04-09 Blood pressure diastolic 82 mmHg 2016-04-09 MEDICATIONS Unknown Medications RESULTS No Results PROCEDURES No Known procedures IMMUNIZATIONS No Known Immunizations
--- OUTSIDE RECORDS SUMMARY | 2017-09-16 20:46 | XMS REPORT ---
Author Author MAGY LEA Organization [employer] Address Unknown Phone Unavailable Care Team Providers Care Pull Out Operator Name Role Phone MAGY LEA CP Unavailable Allergies, Adverse Reactions, Alerts Substance Reaction Event Type N.K.D.A. Info Not Available Non Drug Allergy Problems Problem Type Condition Code Onset Dates Condition Status Assessment Acute non-recurrent maxillary sinusitis J01.00 Active Assessment Right otitis media, unspecified chronicity, unspecified otitis media type H66.91 Active Medications Medication Code System Code Instructions Start Date End Date Status Dosage Raji/Mag [facility] [address] 200-100 MG Orally Once a day 2 tablets Grape Seed Complex [facility] [address] 50 mg Orally Once a day 2 tablets Ergocalciferol [facility] [address]-58 63701 UNIT Orally Once a week September 26, 2015 October 08, 2015 1 capsule Probiotic [facility] [address] 1 Orally Once a day not defined Loratadine Allergy Relief [facility] 680[address]7714 10 MG Orally Once a day 1 tablet on the tongue and allow to dissolve Dietary Management Product NDC 0 2 Orally Once a day not defined Amoxicillin [facility] [address]-04 875 MG Orally every 12 hrs October 01, 2015 October 11, 2015 1 tablet Ibuprofen [facility] [address]-88 600 MG Orally Three times a day September 26, 2015 October 26, 2015 1 tablet Dlbapylc-Ipeyvdbvs-OQ [facility] [address]-31 3.5-87967-3 Otic Three times a day October 01, 2015 4 drops into affected ear Estradiol [facility] [address]-95 0.1 MG/GM Vaginal as directed September 26, 2015 instill 0.2mg daily x 2 weeks and then instill 0.2 mg twice weekly Multi Complete [facility] [address] Orally not defined Eye Health Formula NDC 0 1 by oral route Once a day not defined Procedures Procedure Coding System Code Date Office Visit, Est Pt., Level 3 CPT-4 24169 October 01, 2015 Vital Signs Date/Time: October 01, 2015 Cardiac Monitoring Heart Rate 80 bpm Weight 300 lbs Height 63 in BMI 53.14 Index Blood Pressure Diastolic 74 mmHg Blood Pressure Systolic 130 mmHg Results No Known Results Summary Purpose [employer] Submission
--- OUTSIDE RECORDS SUMMARY | 2017-09-16 20:46 | XMS REPORT ---
Author Author FRACISCO MCINTOSH [facility] Address [address] [place] [address] Care Team Providers Care Account Executive Key Accounts Name Role Phone FRACISCO MCINTOSH Unavailable PROBLEMS Type Condition ICD9-CM Code ZXB07-YZ Code Onset Dates Condition Status SNOMED Code Problem Left bundle branch block (LBBB) I44.7 Active 53461832 Problem Chest pain R07.9 Active 52180168 Problem Essential hypertension I10 Active 15752138 Problem Seasonal allergic rhinitis due to other allergic trigger J30.89 Active 119526034 Problem Low vitamin D level E55.9 Active 829714324 Problem Morbid obesity, unspecified obesity type E66.01 Active 810297144 ALLERGIES Substance Reaction Event Type Date Status N.K.D.A. Unknown Non Drug Allergy Mar, Unknown SOCIAL HISTORY No smoking Hx information available PLAN OF CARE Activity Details Follow Up prn Reason: VITAL SIGNS Height 63 in 2016-03-18 Weight 302 lbs 2016-03-18 Temperature 99.5 degrees Fahrenheit 2016-03-18 Heart Rate 104 bpm 2016-03-18 Respiratory Rate 22 2016-03-18 Oximetry 93 % 2016-03-18 BMI 53.49 kg/m2 2016-03-18 Blood pressure systolic 138 mmHg 2016-03-18 Blood pressure diastolic 72 mmHg 2016-03-18 MEDICATIONS Medication Instructions Dosage Frequency Start Date End Date Duration Status Eye Health Formula 1 by oral route Once a day 24h Active Dietary Management Product 2 Orally Once a day 24h Active Tessalon Perles 100 MG Orally Three times a day 1 capsule as needed 8h Mar, Active Grape Seed Complex 50 mg Orally Once a day 2 tablets 24h Active Fluticasone Propionate 50 MCG/ACT Nasally Once a day 1 spray in each nostril 24h Mar, 30 day(s) Active Probiotic 1 Orally Once a day 24h Active Loratadine Allergy Relief 10 MG Orally Once a day 1 tablet on the tongue and allow to dissolve 24h Active Multi Complete Active Raji/Mag 200-100 MG Orally Once a day 2 tablets 24h Active RESULTS No Results PROCEDURES Procedure Date Ordered Related Diagnosis Body Site MEASURE BLOOD OXYGEN LEVEL Mar 18, 2016 SOLUMEDROL (UP TO 125 MG) Mar 18, 2016 Office Visit, Est Pt., Level 3 Mar 18, 2016 THER/PROPH/DIAG INJ, SC/IM Mar 18, 2016 IMMUNIZATIONS Vaccine Route Administration Date Status SOLUMEDROL (UP TO 125 MG) IM Intramuscular Mar 18, 2016 Administered
--- OUTSIDE RECORDS SUMMARY | 2017-09-16 20:46 | XMS REPORT ---
Author Author TORI VEGA [facility] [place] Address [address] [place] [address] Care Team Providers Care Interface Analyst Name Role Phone TORI VEGA Unavailable PROBLEMS Type Condition ICD9-CM Code JGA12-QM Code Onset Dates Condition Status SNOMED Code Problem Chest pain R07.9 Active 74720933 Problem Left bundle branch block (LBBB) I44.7 Active 80284606 Problem Essential hypertension I10 Active 98228870 Problem Seasonal allergic rhinitis due to other allergic trigger J30.89 Active 103658576 Problem Morbid obesity, unspecified obesity type E66.01 Active 762486364 Problem Low vitamin D level E55.9 Active 371824866 ALLERGIES No Known Allergies ENCOUNTERS Encounter Location Date Diagnosis [facility] [address] [id number][place] [id number] Jun, [facility] [address] [id number][place] [id number] Jun, Lymphadenopathy of head and neck R59.1 [facility] [address] [id number][place] [id number] Jun, BMI 45.0-49.9, adult Z68.42 ; Other specified bacterial agents as the cause of diseases classified elsewhere B96.89 ; Acute pharyngitis due to other specified organisms J02.8 ; Sore throat J02.9 and Cough R05 [facility] [address] [id number], [place] [address] Jun, [facility] [address] [id number], [place] [address] Mar, Essential hypertension I10 [facility] [address] [id number], [place] [address] Mar, Seasonal allergic rhinitis due to other allergic trigger J30.89 [facility] [address] [place] [id number] [place] [address] 04 Mar, 2017 [facility] [address] [place] [id number] [place] [address] 05 Dec, 2016 Essential hypertension I10 [facility] [address] [address] Nov, Essential hypertension I10 [facility] [address] [address] Oct, [facility] [address] [address] Oct, Facial eczema L30.9 ; Essential hypertension I10 and Wellness examination Z00.00 [facility] [address] [address] Sep, Screening for diabetes mellitus Z13.1 [facility] [address] [place] [id number] [place] [address] Sep, Screening for diabetes mellitus Z13.1 [facility] [address] [place] [id number] [place] [address] August, Dysuria R30.0 [facility] [address] [place] [id number] [place] [address] Jul, Chest pain, unspecified type R07.9 [facility] [address] [place] [id number] [place] [address] Jul, Chest pain R07.9 and Left bundle branch block (LBBB) I44.7 [facility] [address] [place] [id number] [place] [address] Jul, Urinary tract infection N39.0 [facility] [address] [place] [id number] [place] [address] Jul, [facility] [id number], [place] [address] Jul, [facility] [address] [place] [id number], [place] [address] Jul, Dysuria R30.0 ; Low vitamin D level E55.9 ; Encounter for immunization Z23 ; Essential hypertension I10 ; Morbid obesity, unspecified obesity type E66.01 ; Edema, unspecified type R60.9 and Tinea corporis B35.4 [facility] [id number][place] [id number] Jul, [facility] [address] [place] [id number] [place] [id number] Jun, Cough R05 [facility] [address] [place] [id number] [place] [id number] Apr, Blood pressure check Z01.30 [facility] [address] [id number] [id number] Apr, [facility] [address] [place] [id number] [place] [id number] Apr, [facility] [id number], [place] [address] Apr, Viral syndrome B34.9 [facility] [address] [id number], [place] [address] Apr, [facility] [address] [place] [id number] [place] [address] Apr, Essential hypertension I10 [facility] [address] [id number] [id number] Apr, Blood pressure check Z01.30 [facility] [address] [place] [id number] Apr, Blood pressure check Z01.30 [address]00565100[place], [place] [id number] Apr, Blood pressure check Z01.30 [address]65100[place], [place] [id number] Apr, [facility] [id number], [place] [id number] Apr, [place] [id number] [place] [id number] Apr, Blood pressure check Z01.30 [place] [id number] [place] [id number] Apr, Blood pressure check Z01.30 [place] 9632065100[place] [id number] Apr, Blood pressure check Z01.30 [place] [address] [place] [id number] Apr, Essential hypertension I10 and Heart palpitations R00.2 [facility] [address] [place] [id number] [place] [id number] Mar, Seasonal allergic rhinitis due to other allergic trigger J30.89 and Heart murmur R01.1 [facility] [address] [id number][place] [id number] Mar, [address]65100[place], [place] [id number] Mar, Viral syndrome B34.9 [facility] [id number], [place] [id number] Feb, [address]65100[place], [place] [id number] Feb, Dizziness R42 [facility] [id number], [place] [id number] Oct, [facility] [address] [place] [address], [place] [id number] Oct, [id number] [phone] Oct, URI, acute J06.9 [address]00565100[place] [id number] Sep, Right otitis media, unspecified chronicity, unspecified otitis media type H66.91 and Acute non-recurrent maxillary sinusitis J01.00 [place] [id number] [id number] Sep, [place] [id number] [place] [id number] Sep, [place] [id number] [place] [id number] Sep, Vitamin D deficiency E55.9 ; Vaginal dryness, menopausal N95.1 ; Frequent headaches R51 and Impacted cerumen of right ear H61.21 [address]00565100[place], [place] [id number] Sep, Annual physical exam Z00.00 and Vitamin D deficiency, unspecified E55.9 [place] [id number] [place] [id number] Mar, Urinary tract infection, site not specified N39.0 and Dysuria R30.0 [place] [id number] [place] [id number] Dec, Viral syndrome 079.[address] [id number] Dec, Allergic rhinitis 477.9 [place] [id number] [place] [id number] Oct, Herpes zoster 053.[address] [place] [id number] August, Screening for lipoid disorders V77.91 and Screening for diabetes mellitus V77.1 [facility] [address]00565100[place] [address] 14 Jul, 2014 [facility] [address] [id number] [address] Jul, [place] [address] [place] [address]100[place], [place] [id number] Jun, [facility] [address] [id number] [address] Jun, [address]65100[place], [place] [id number] Mar, [place] [address]100[place] [address] Mar, [address]65100[place], [place] [id number] Mar, [place] [address] [id number] [address] Mar, [address]00565100[place], [place] [id number] Jan, [place] [address] [id number] [address] Jan, IMMUNIZATIONS No Known Immunizations SOCIAL HISTORY Never Assessed REASON FOR VISIT sinus drainage since last Wednesday / [employer] [facility] [employer] [facility] Activity Details Follow Up prn Reason:acute VITAL SIGNS Height 63 in 2017-03-13 Weight 279.3 lbs 2017-03-13 Temperature 97.6 degrees Fahrenheit 2017-03-13 Heart Rate 102 bpm 2017-03-13 Respiratory Rate 16 2017-03-13 BMI 49.47 kg/m2 2017-03-13 Blood pressure systolic 146 mmHg 2017-03-13 Blood pressure diastolic 82 mmHg 2017-03-13 MEDICATIONS Medication Instructions Dosage Frequency Start Date End Date Duration Status Losartan Potassium 25 MG ONE A DAY 30 Active Flonase 50 MCG/ACT Nasally Twice a day 1 spray in each nostril 12h Mar, 30 day(s) Active Nitroglycerin 0.4 MG Sublingual for severe chest pain, may repeat every 5 minutes, max of 3 doses in 15 min take 1 tablet Jul, Not- Taking Metoprolol Succinate ER 50 MG Orally Once a day 1 tablet 24h Active Hydrochlorothiazide 12.5 MG Orally Once a day 1 tablet in the morning 24h Jul, Active Zyrtec Allergy 10 MG Orally Once a day 1 tablet 24h Active Nystatin 672824 UNIT/GM Externally Twice a day 1 application to affected area 12Jul, Not-Taking Aspirin Adult Low Dose 81 MG Orally Once a day 1 tablet 24h Not- Taking RESULTS No Results PROCEDURES No Known procedures INSTRUCTIONS MEDICATIONS ADMINISTERED No Known Medications MEDICAL (GENERAL) HISTORY Type Description Date Medical History hypertension Medical History obesity Medical History allergic rhinitis Medical History menopause Surgical History appendecomy 2011 Surgical History hysterectomy 1999 Surgical History broken nose repair Hospitalization History Surgery(s)/Childbirth(s) only Hospitalization History Hypertension 2015
--- OUTSIDE RECORDS SUMMARY | 2017-09-16 20:46 | XMS REPORT ---
Author Author TORI VEGA Organization [employer] Address Unknown Phone Unavailable Care Team Providers Care Councilman Name Role Phone TORI VEGA CP Unavailable Allergies No Known Allergies Problems No Known Problems Medications No Known Medications Results No Known Results Summary Purpose [employer] Submission
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
[2017-09-16 22:00] VITALS: BP 129/61
== END 2017-09-16 22:03 | disposition home or self-care (01) ==
LOC: EDUNIT# 19:10 → ER 19:11
DX: R91.1 Solitary pulmonary nodule (principal); K44.9 Diaphragmatic hernia without obstruction or gangrene; R07.89 Other chest pain; R40.2142 Coma scale, eyes open, spontaneous, at arrival to emergency department; R40.2252 Coma scale, best verbal response, oriented, at arrival to emergency department; R40.2362 Coma scale, best motor response, obeys commands, at arrival to emergency department; E78.00 Pure hypercholesterolemia, unspecified; I10 Essential (primary) hypertension; Z90.89 Acquired absence of other organs; Z90.710 Acquired absence of both cervix and uterus; Z79.82 Long term (current) use of aspirin; V49.50XA Passenger injured in collision with unspecified motor vehicles in traffic accident, initial encounter
CPT/HCPCS: 36415; 71275; 80053; 84484; 85025; 93005; 93041

== ENCOUNTER → 2021-09-04 | Outpatient (CLI) | payer BC ==
[~2021-09-04] MED LIST: HYDR12.5; LOSA25TA41; METO50TA7; SIMV20TA26
[2021-09-04 17:19] LABS: ABSOLUTE RETIC # 123 10e9/uL (24-90); BASOPHILS % (AUTO) 1 % (0-10); EOSINOPHILS # (AUTO) 0.1 10^3/uL (0.0-0.3); EOSINOPHILS % (AUTO) 2 % (0-10); HEMATOCRIT 35 % (35-52); HEMOGLOBIN 11.6 g/dL (11.5-16.0); LYMPHOCYTES # (AUTO) 1.6 10^3/uL (1.0-4.0); LYMPHOCYTES % (AUTO) 21 % (12-44); MEAN CORPUSCULAR HEMOGLOBIN 29 pg (25-34); MEAN CORPUSCULAR HGB CONC 33 g/dL (32-36); MEAN CORPUSCULAR VOLUME 88 fL (80-99); MEAN PLATELET VOLUME 9.6 fL (9.0-12.2); MONOCYTES # (AUTO) 0.6 10^3/uL (0.0-1.0); MONOCYTES % (AUTO) 8 % (0-12); NEUTROPHILS # (AUTO) 5.2 10^3/uL (1.8-7.8); NEUTROPHILS % (AUTO) 68 % (42-75); PLATELET COUNT 266 10^3/uL (130-400); RETICULOCYTE % 3.09 % (0.50-2.40); WHITE BLOOD COUNT 7.6 10^3/uL (4.3-11.0)
[2021-09-04 18:36] LABS: EOSINOPHILS % (MANUAL) 4 %; LYMPHOCYTES % (MANUAL) 28 %; MONOCYTES % (MANUAL) 4 %; NEUTROPHILS % (MANUAL) 64 %; RBC MORPH NORMAL
== END ==
LOC: LAB 16:34
PROVIDERS: ATTEND Internal Medicine
DX: Q05.9 Spina bifida, unspecified (principal)
CPT/HCPCS: 36415; 85007; 85027; 85045; 85055